=== PATIENT | male | born 1970 | race Caucasian/White ===

== ENCOUNTER 2019-02-04 07:51 | Day surgery (SDC) | payer OTHER, SELFPAY ==
--- NOTE | 2019-02-04 | PATH_ITS ---
[facility] Accession Number: [id number] . 01 Material submitted: . colon - COLON POLYP AT 55 CM . 01 Clinical history: . SCREENING COLONOSCOPY . 02 Diagnosis: Colon, Polyp At 55 CM, Biopsy: Benign lymphoid aggregate. Additional levels were examined. [facility] 02/06/2019 1624 Local . 02 Electronically signed: . Sylvia Vieira MD, Pathologist NPI- [id number] . 01 Gross description: . COLON POLYP AT 55 CM: Received in formalin are 2 fragment(s) of chan, soft tissue measuring 0.1 x 0.1 x 0.1 cm in aggregate submitted entirely in 1 cassette(s) /[facility] 02/04/2019 1933 Local . 02 Pathologist provided ICD-10: K63.5 . 02 CPT . 488282 Performed at: 01 [facility] [address] [place] [id number] MD Farhat Galvan MD Phone: [phone] Performed at: 02 [facility] [address] [place], [place] [id number] MD Sylvia Vieira MD Phone: [phone]
--- NOTE | 2019-02-04 06:49 | P.HP_ITS ---
History of Present Illness History of Present Illness Chief complaint: [id number] SCREENING COLONOSCOPY Patient History Medical History Carpal tunnel syndrome (Acute) Meds Home Medications and Allergies Home Medications Medication Instructions Recorded Confirmed Type OMEGA-3 FATTY ACIDS (FISH OIL) 500 mg PO #0 05/09/16 History aspirin 81 mg PO QDAY #0 05/09/16 History atorvastatin [Lipitor] 40 mg PO QDAY #0 05/09/16 History metformin [Glucophage XR] 500 mg PO QDAY #0 05/09/16 History hydrocodone-acetaminophen [[place]] 1 tab PO Q6HP PRN #10 tab 01/15/17 Rx pantoprazole [Protonix] 40 mg PO QDAY #30 tab 03/14/17 Rx lisinopril 40 mg PO QDAY #0 05/08/17 History metoprolol succinate [Toprol XL] 50 mg PO QDAY #0 05/08/17 History Allergies Allergy/AdvReac Type Severity Reaction Status Date / Time morphine [MORPHINE] Allergy Unknown VOMITING Verified 02/04/19 08:44 Review of Systems Review of Systems ROS Unobtainable: All systems reviewed & are unremarkable except as noted in HPI and below Exam Narrative Exam Narrative: General-no acute distress, well nourished HEENT-moist mucous membranes, no scleral icterus Neck-supple, no lymphadenopathy Chest- non labored respirations, clear to auscultation bilaterally Cardiac-regular rate no peripheral edema Abdomen-soft, nontender, non distended Extremities-warm, well perfused Neurological-alert and oriented, no focal deficits Assessment & Plan Assessment and plan (1) Screening for colon cancer: Problem details: The patient requires colorectal screening and colonoscopy is recommended. Technical details were discussed. Risks, benefits, alternatives explained. Risks including but not limited to myocardial infarction, aspiration, bleeding, pain, missed lesion, incomplete examination, need for further radiographic studies, colonic perforation, and need for major abdominal surgery were discussed. All questions were answered to their satisfaction, and they are in agreement with this plan. Current visit: Yes Status: Acute Assessment & Plan narrative: .
[2019-02-04] MEDS: SODIUM CHLORIDE 0.9% 1,000 ML 200 ML IV (08:54)
[2019-02-04 08:55] VITALS: BP 126/83; PULSE 87; RESP 24; TEMP 36.8; O2SAT 98; BMI 40.7
[2019-02-04] MEDS: fentaNYL 250 MCG/5 ML INJ IV (09:51)
[2019-02-04] MEDS: MIDAZOLAM 5 MG/5 ML VIAL IV (09:51)
--- NOTE | 2019-02-04 10:06 | PM.OP.ENDO ---
Operative Date/Time/Diagnoses Date of procedure: 02/04/19 Time of procedure: 10:06 Pre-op diagnosis: Screening colonoscopy Post-op diagnosis: same Procedure & Clinicians Study performed: Colonoscopy Same procedure as scheduled: Yes Indications: 48-year-old gentleman no previous colonoscopy presents for screening. Surgeon: Chintan Galarza Procedure Notes SCOAP/Timeout: Performed Procedure in detail: Patient placed in left lateral decubitus position. Time out was performed. Procedural sedation was administered with Versed and Fentanyl. A rectal exam demonstrated no external hemorrhoids no internal masses. Colonoscopy scope was placed into the rectum and advanced through the colon to the cecum. The ileocecal valve was identified. The scope was then slowly withdrawn examining colon thoroughly in all directions. The colonoscopy was notable for the following 1. DIVERTICULOSIS 2. FLAT POLYP <1 CM AT 55 CM FROM ANAL VERGE BIOPSIED, HEMOSTATIC AT COMPLETION 3. QUALITY OF PREP EXCELLENT Scope withdrawal time: 9 Sedation minutes: 20 Findings: diverticulosis and polyp Specimen(s): other (POLYP) Impression: POLYP Post-procedure Recommendations: Colonscopy in 5 years Disposition: same day surgery
[2019-02-04 10:10] VITALS: BP 142/99; PULSE 87; RESP 15; TEMP 36.2; O2SAT 97
[2019-02-04 10:15] VITALS: BP 142/81; PULSE 91; RESP 16; O2SAT 98
[2019-02-04 10:20] VITALS: BP 155/98; PULSE 98; RESP 13; O2SAT 100
[2019-02-04 10:25] VITALS: BP 116/76; PULSE 85; RESP 17; TEMP 36.8; O2SAT 100
[2019-02-04 10:30] VITALS: BP 127/78; PULSE 85; RESP 15; TEMP 36; O2SAT 100
== END 2019-02-04 10:41 | disposition home or self-care (01) ==
PROVIDERS: PCP Family Medicine; Visit Provider Surgery
PROC: 0DJD8ZZ Inspection of Lower Intestinal Tract, Via Natural or Artificial Opening Endoscopic (ICD-10-PCS; CPT 45378; principal; 2019-02-04 09:30)
DX: Z12.11 Encounter for screening for malignant neoplasm of colon (principal); K57.30 Diverticulosis of large intestine without perforation or abscess without bleeding; K63.5 Polyp of colon
CPT/HCPCS: 45380; 99152; J2250; J3010

== ENCOUNTER 2019-06-11 12:37 | Emergency (ER) | payer OTHER, SELFPAY ==
[2019-06-11] VITALS (9 sets, daily range): BP systolic 116–161; BP diastolic 62–91; PULSE 54–75; RESP 12–18; TEMP 36.7; O2SAT 96–99
--- NOTE | 2019-06-11 12:40 | DI.RAD.S_ITS ---
PROCEDURE: XR CHEST 1V INDICATIONS: chest pain TECHNIQUE: One view of the chest was acquired. COMPARISON: [facility], , CHEST 1 VIEW, 03/14/2017, 18:09. FINDINGS: Surgical changes and devices: None. Lungs and pleura: Lungs are clear. No pleural effusions or pneumothorax. Mediastinum: Mediastinal contours appear normal. Heart size is normal. Bones and chest wall: No suspicious bony lesions. Overlying soft tissues appear unremarkable. IMPRESSION: No acute disease Dictated by: Demar Ocampo M.D. on 06/11/2019 at 13:31 Approved by: Demar Ocampo M.D. on 06/11/2019 at 13:31
--- NOTE | 2019-06-11 12:55 | ED.CHESTPAIN ---
HPI - Chest Pain General Chief Complaint: Chest Pain Stated Complaint: Chest Pain Time Seen by Provider: 06/11/19 12:37 Source: EMS Mode of arrival: EMS History of Present Illness HPI narrative: 48-year-old gentleman with a history diabetes, hypertension, hyperlipidemia, obesity, prior cardiac catheterization with ?a small heart attack? but no stenting approximately 15 years ago. Presents to urgent care this morning complaining of chest pain intermittent for the last 3 days. Worse with activity resolves with rest. Somewhat worse with a cough and he has had mild upper respiratory symptoms in the last week. Over the last 3 days the intermittent episodes of exertional chest pain or beginning to cause as pain radiating up to the back of his head and then today while driving from [employer] to [employer] he noticed some numbness in his left hand and forearm associated with the left-sided chest pain. The initial episode was 3 days ago, started shortly after waking up, he describes it added as an 8/10 sharp, tight, associated with diaphoresis and dyspnea and was severe enough that he had trouble even bending over. Eventually resolved spontaneously. Recurrent episodes over the last couple of days are similar in nature. He does describe 2 distinct types of chest pain. One is a sharp stabbing pain when he is coughing and the other is with exertion that is associated with a deeper tight type of pain and diaphoresis and dyspnea. EN route from urgent care he was given aspirin as well as 2 nitroglycerin. He found that the nitroglycerin took his 8/10 pain down to a 6/10. He is quite comfortable during the exam, but describes pain increasing again to an 8/10 without diaphoresis or objective dyspnea. Related Data Home Medications Medication Instructions Recorded Confirmed OMEGA-3 FATTY ACIDS (FISH OIL) 500 mg PO DAILY #0 05/09/16 06/11/19 aspirin 81 mg PO QPM #0 05/09/16 06/11/19 atorvastatin [Lipitor] 40 mg PO QPM #0 05/09/16 06/11/19 metformin [Glucophage XR] 1,000 mg PO BID #0 05/09/16 06/11/19 metoprolol succinate [Toprol XL] 50 mg PO QPM #0 05/08/17 06/11/19 losartan 50 mg PO QPM 06/11/19 06/11/19 Allergies Allergy/AdvReac Type Severity Reaction Status Date / Time morphine [MORPHINE] AdvReac Severe VOMITING Verified 06/11/19 12:47 Review of Systems Review of Systems Narrative: Minor cough runny nose and sore throat over the last 5 days improving now. Remainder of review as per HPI and otherwise unremarkable Patient History Medical History (Updated 06/11/19 @ 16:11 by Rocio Vieyra MD) Carpal tunnel syndrome (Acute) Diabetes (Acute) HTN (hypertension) (Acute) Morbid obesity (Acute) JESSICA (obstructive sleep apnea) (Acute) Social History household members: family Smoking Status: Never smoker Smoking Status: Never smoker alcohol intake frequency: 0-2 drinks per day Substance Use Type: does not use Exam Narrative Exam Narrative: General: Healthy appearing, in no acute distress. Able to give a complete and coherent history. Well-nourished well-developed HEENT: Moist mucous membranes, normal sclera with reactive pupils, Neck: No JVD, supple Chest: With a pre compression of his chest he does have some costochondral tenderness that he describes as separate from the left chest pain tightness that is relieved with nitro and the pain for which she is currently being evaluated Respiratory: Lungs are clear to auscultation, no wheezing no rales no rhonchi. Full and symmetrical air movement Cardiac: Regular rate and rhythm no murmurs no bruits Abdomen: Soft nontender good bowel tones, no flank pain Skin: Warm and dry, no rashes Neurologic: Grossly neurologically intact with no obvious asymmetries or abnormalities Extremities: No trauma, well perfused, no edema Psych: Cooperative, appropriate insight and affect Initial Vital Signs Initial Vital Signs: Vital Signs Temperature 98.1 F 06/11/19 12:40 Pulse Rate 75 06/11/19 12:40 Respiratory Rate 16 06/11/19 12:40 Blood Pressure 151/86 H 06/11/19 12:40 Pulse Oximetry 99 06/11/19 12:40 Course Orders Ordered: ED Orders 06/11/19 12:35 Complete Blood Count AUTO DIFF Stat Comprehensive Metabolic Panel Stat Lipase Stat Troponin & CK Cardiac Panel Stat 06/11/19 12:40 XR chest 1V Stat EKG-12 Lead Stat 06/11/19 14:35 Troponin & CK Cardiac Panel Stat 06/11/19 16:01 EKG-12 Lead Stat 06/11/19 16:08 EC echo limited Stat Discontinued Medications Aspirin (Aspirin Chew) 324 mg PO NOW ONE Stop: 06/11/19 12:41 Last Admin: 06/11/19 12:49 Dose: Not Given Documented by: KINA Al Hydrox/Mg Hydrox/Simethicone 20 ml/ Lidocaine HCl 15 ml 0 ml PO NOW ONE Stop: 06/11/19 16:22 Last Admin: 06/11/19 16:27 Dose: 35 ml Documented by: KINA Heparin Sodium (Porcine) (Heparin) 5,000 unit IV NOW ONE Stop: 06/11/19 12:58 Last Admin: 06/11/19 13:14 Dose: 5,000 unit Documented by: KINA Sodium Chloride (Normal Saline 0.9%) 1,000 mls @ 150 mls/hr IV CONT [facility] Last Infusion: 06/11/19 17:50 Dose: 0 mls/hr Documented by: Admin: 06/11/19 13:01 Dose: 150 mls/hr Documented by: KINA Heparin Sodium/Dextrose (Heparin Drip) 25,000 unit in 500 mls @ 20 mls/hr IV CONT [facility]; Protocol Last Titration: 06/11/19 17:50 Dose: 0 units/hr, 0 mls/hr Documented by: Admin: 06/11/19 13:14 Dose: 1,000 units/hr, 20 mls/hr Documented by: KINA Ketorolac Tromethamine (Toradol) 15 mg IV NOW ONE Stop: 06/11/19 13:26 Last Admin: 06/11/19 13:42 Dose: 15 mg Documented by: KINA Metoprolol Tartrate (Lopressor) 5 mg IV Q5M FAM Stop: 06/11/19 13:26 Last Admin: 06/11/19 15:44 Dose: Not Given Documented by: Admin: 06/11/19 15:44 Dose: Not Given Documented by: Admin: 06/11/19 15:44 Dose: Not Given Documented by: KINA Morphine Sulfate (Morphine) 2 mg IV Q15MIN [facility] Last Admin: 06/11/19 14:16 Dose: 2 mg Documented by: SVETA Nitroglycerin (Nitrostat) 0.4 mg SL [id number] PRN PRN Reason: Chest Pain Last Admin: 06/11/19 13:00 Dose: 0.4 mg Documented by: KINA Nitroglycerin (Nitro-Bid) 0.5 inch TOP NOW ONE Stop: 06/11/19 12:41 Last Admin: 06/11/19 13:15 Dose: 0.5 inch Documented by: KINA Ondansetron HCl (Zofran) 4 mg IV NOW ONE Stop: 06/11/19 14:11 Last Admin: 06/11/19 14:17 Dose: 4 mg Documented by: SVEAT Pantoprazole Sodium (Protonix) 40 mg IV NOW ONE Stop: 06/11/19 17:05 Last Admin: 06/11/19 17:08 Dose: 40 mg Documented by: KINA Vital Signs Vital signs: Vital Signs - 8 hr 06/11/19 12:40 06/11/19 13:00 06/11/19 13:15 Temperature 98.1 F Pulse Rate 75 74 74 Respiratory Rate 16 14 Blood Pressure 151/86 H 161/91 H 129/71 Blood Pressure [Right Arm] 161/91 H Pulse Oximetry 99 99 06/11/19 13:21 06/11/19 14:00 06/11/19 14:56 Temperature Pulse Rate 69 60 56 L Respiratory Rate 12 18 18 Blood Pressure Blood Pressure [Right Arm] 126/73 116/68 135/62 Pulse Oximetry 99 99 99 06/11/19 15:43 06/11/19 16:22 06/11/19 17:02 Temperature Pulse Rate 54 L 59 L 56 L Respiratory Rate 17 15 18 Blood Pressure Blood Pressure [Right Arm] 135/62 135/62 135/62 Pulse Oximetry 99 99 96 MDM - Chest Pain Medical Records Data Attestation: I reviewed the patient's medical records. Lab Data Attestation: I reviewed the patient's lab results. Lab results narrative: Initial troponin and repeat troponin are both unremarkable Result diagrams: 06/11/19 12:35 06/11/19 12:35 Labs: Lab Results 06/11/19 06/11/19 06/11/19 Range/Units 12:35 12:35 14:35 WBC 7.0 (4.5-11.0) X10^3/uL RBC 6.10 H (4.5-5.9) X10^6/uL Hgb 13.0 L (13.5-17.5) g/dL Hct 40.9 L (41-53) % MCV 67.0 L (80-100) fL MCH 21.2 L (26-34) PG MCHC 31.7 (30-36) % RDW 16.6 H (11.6-14.8) % Plt Count 247 (150-400) X10^3/uL Neut % (Auto) 56.9 (50-75) % Lymph % (Auto) 24.2 L (25-40) % [place] % (Auto) 9.9 (3-14) % Eos % (Auto) 8.1 H (2-4) % Baso % (Auto) 0.9 (0-2) % Neut # (Auto) 4000 (3963-2611) /uL Lymph # (Auto) 1700 (7908-4781) /uL [place] # (Auto) 700 (0-900) /uL Eos # (Auto) 600 H (0-450) /uL Baso # (Auto) 100 (0-100) /uL RBC Morphology See below Hypochromasia 1+ H Anisocytosis 1+ H Microcytosis 1+ H Sodium 141 (137-145) mmol/L Potassium 4.3 (3.4-5.1) mmol/L Chloride 106 (98-107) mmol/L Carbon Dioxide 25 (22-32) mmol/L BUN 14 (9-20) mg/dL Creatinine 0.60 L (0.66-1.25) mg/dL Estimated GFR > 60.0 (>60) mL/min BUN/Creatinine Ratio 23.3 H (6-22) Glucose 130 H (70-100) mg/dL Calcium 9.8 (8.4-10.2) mg/dL Total Bilirubin 0.5 (0.2-1.3) mg/dL AST 34 (17-59) IU/L ALT 42 (<50) IU/L Alkaline Phosphatase 111 (38-126) U/L Total Creatine Kinase 206 H 187 H (55-170) U/L CK-MB (CK-2) 0.82 0.79 (<2.37) ng/mL CK-MB (CK-2) Rel Index 0.4 L 0.4 L (1.5-5.0) % Troponin I < 0.012 < 0.012 (0.01-0.034) ng/mL Total Protein 8.3 H (6.3-8.2) g/dL Albumin 4.6 (3.5-5.0) g/dL Globulin 3.7 (1.7-4.1) g/dL Albumin/Globulin Ratio 1.2 (1.0-2.8) Lipase 108 (23-300) U/L Imaging Data Chest x-ray: Radiologist's Impression: IMPRESSION: No acute disease Dictated by: Demar Ocampo M.D. on 06/11/2019 at 13:31 ECG Data Attestation: I personally reviewed and interpreted this ECG as follows: Interpretation: Initial EKG has a ventricular rate of 72 beats per minute Normal axis, normal intervals no acute ischemia EKG #2 At 4:07 p.m. Indication: Ongoing chest pain Normal sinus rhythm at a rate of 54 Normal axis, normal intervals no ischemic changes. No changes from initial EKG MDM Narrative Medical decision making narrative: HEART score is 5 even before troponins are returned and with normal EKGs. His history is strongly suspicious for both the pleuritic type pain related to his upper respiratory infection and left-sided chest pain consistent with unstable angina increasing from exertional pain to pain at rest with left arm numbness this morning. He is initially treated with aspirin nitro and started on a heparin drip based on his history. Initial lab work is done. Blood pressure remains elevated with a heart rate at 70 to go ahead and administer IV metoprolol as heart rate and blood pressure tolerate. Will need hospital admission based on history and presentation with initial troponin helping guide the need for emergent verses routine cardiology intervention Initial troponin is unremarkable. Pain has not been influenced further with nitro or nitropaste. Still objectively looking quite comfortable but complaining of significant chest pain. Nitro has brought his blood pressure down heart rate is in the mid 60s will hold on any metoprolol at this point. He describes vomiting after morphine. Try Toradol at this point and see if that influences his pain more than the nitro 14:18 reality. Still complaining of significant chest pain. Toradol did not influenza either. Remains with half an inch of nitro paste and heparin drip in place. He states that the pain is worse with a deep breath currently. He continues to go on to explain over the last 3 days it has absolutely been exertional with diaphoresis requiring less exertion and his previous cardiac event at the age of 35 had similar findings with associated left-sided numbness. With his multiple risk factors as well as the clear description of exertional, associated diaphoresis and now with the left arm numbness I am still significantly concerned about true cardiac etiology rather than an alternate either musculoskeletal or pleuritic component as a complete explanation for his current pain Call to [facility], they do have beds available. Will talk to hospitalist once available. Initial labs were at 12:30 p.m. will repeat a 2nd set of enzymes now. Explained plan and findings with patient. Will try Zofran followed by 2 mg of morphine to see if this helps his pain as the Toradol and nitro currently have not [address] Harper, [facility] hospitalist. Review findings including minimal change to pain with morphine. She recommended adding a nitro drip. Accepted admission. Also asked that I review care with Dr. 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. 1610: Dr. Santillan recommends stat echo to look for wall abnormalities. In the absence of cardiac wall abnormalities, negative troponin and negative EKGs he feels the likelihood of a cardiac etiology for this ongoing chest pain is small. Encourage is continuing to search for other etiologies. Does not feel that he increasing nitro to a drip is necessary at this time. Will go ahead and try a GI cocktail to see if that has any effect on his pain and will let Dr. Harper no of the recommendations and plan for transfer to [facility] 17:05 GI cocktail has influenced his pain somewhat. Will give him 40 mg of IV Protonix. Bed is available at [facility]. Transport is being arranged currently. Discharge Plan Departure Patient Disposition: [facility] Clinical Impression: Chest pain Discharge Date/Time: 06/11/19 17:51 Prescriptions: No Action atorvastatin [Lipitor] 40 MG tablet 40 mg PO QPM Qty: 0 RF: 0 aspirin 81 MG tablet,delayed release (DR/EC) 81 mg PO QPM Qty: 0 RF: 0 metformin [Glucophage XR] 500 MG tablet extended release 24 hr 1,000 mg PO BID Qty: 0 RF: 0 OMEGA-3 FATTY ACIDS (FISH OIL) 500 mg PO DAILY Qty: 0 RF: 0 metoprolol succinate [Toprol XL] 50 MG tablet extended release 24 hr 50 mg PO QPM Qty: 0 RF: 0 losartan 50 mg Tablet 50 mg PO QPM RF: 0 Referrals: Chaz Monique MD [Primary Care Provider] -
[2019-06-11 12:58] LABS: Alanine Aminotransferase 42 IU/L (<50); Albumin 4.6 g/dL (3.5-5.0); Albumin Globulin Ratio 1.2 (1.0-2.8); Alkaline Phosphatase 111 U/L (38-126); Aspartate Aminotransferase 34 IU/L (17-59); BUN Creatinine Ratio 23.3 (6-22); Bilirubin Total 0.5 mg/dL (0.2-1.3); Blood Urea Nitrogen 14 mg/dL (9-20); Calcium 9.8 mg/dL (8.4-10.2); Carbon Dioxide 25 mmol/L (22-32); Chloride 106 mmol/L (98-107); Creatine Kinase 206 U/L (55-170); Estimated Glomerular Filt Rate > 60.0 mL/min (>60); Globulin 3.7 g/dL (1.7-4.1); Glucose 130 mg/dL (70-100); HEMOLYSIS < 15 (0-50); Lipase 108 U/L (23-300); Potassium 4.3 mmol/L (3.4-5.1); Sodium 141 mmol/L (137-145); Total Protein 8.3 g/dL (6.3-8.2)
[2019-06-11] MEDS: NITROGLYCERIN 0.4 MG SL TAB SL (13:00)
[2019-06-11 13:01] LABS: Add Manual Diff / Slide Review NO; Basophils Absolute Auto 100 /uL (0-100); Basophils Percent Auto 0.9 % (0-2); Eosinophils Absolute Auto 600 /uL (0-450); Eosinophils Percent Auto 8.1 % (2-4); Hematocrit 40.9 % (41-53); Lymphocytes Absolute Auto 1700 /uL (1100-4500); Lymphocytes Percent Auto 24.2 % (25-40); Mean Corpuscular HGB Conc 31.7 % (30-36); Mean Corpuscular Hemoglobin 21.2 PG (26-34); Monocytes Absolute Auto 700 /uL (0-900); Monocytes Percent Auto 9.9 % (3-14); Neutrophils Absolute Auto 4000 /uL (1500-7000); Neutrophils Percent Auto 56.9 % (50-75); Platelet Count 247 X10^3/uL (150-400); Red Cell Distribution Width 16.6 % (11.6-14.8)
[2019-06-11] MEDS: SODIUM CHLORIDE 0.9% 1,000 ML 150 ML IV (13:01)
[2019-06-11 13:10] LABS: Troponin I < 0.012 ng/mL (0.01-0.034)
[2019-06-11 13:14] LABS: CKMB % Relative Index 0.4 % (1.5-5.0); Creatine Kinase MB 0.82 ng/mL (<2.37)
[2019-06-11] MEDS: HEPARIN 5,000 UNIT/ML VIAL 5000 UNIT IV (13:14)
[2019-06-11] MEDS: HEPARIN DRIP 25,000 UNIT/500 ML IV.SOLN 20 UNIT IV (13:14)
[2019-06-11] MEDS: NITROGLYCERIN OINT 1 INCH/GM OINT...G. 0.5 INCH TOP (13:15)
[2019-06-11 13:30] LABS: Anisocytosis 1+; Hypochromasia 1+; Microcytosis 1+
[2019-06-11] MEDS: KETOROLAC 60 MG/2 ML VIAL 15 MG IV (13:42)
[2019-06-11] MEDS: MORPHINE 2 MG/ML INJ IV (14:16)
[2019-06-11] MEDS: ONDANSETRON 4 MG/2 ML INJ IV (14:17)
[2019-06-11 15:00] LABS: Creatine Kinase 187 U/L (55-170)
[2019-06-11 15:13] LABS: Troponin I < 0.012 ng/mL (0.01-0.034)
[2019-06-11 15:16] LABS: CKMB % Relative Index 0.4 % (1.5-5.0); Creatine Kinase MB 0.79 ng/mL (<2.37)
[2019-06-11] MEDS: MAG HYDROX/ALUMINUM/SIMETH SUS 20 ML, LIDOCAINE VISCOUS 2% 15 ML PO (16:27)
--- NOTE | 2019-06-11 16:32 | PC.NURSE ---
Pt continues to c/o pain left upper abd / left lower anterior chest. Worse w/ cough. Easy work of breathing. Denies nausea / vomiting/ diaphorisis. [place]/warm/dry. c/o pain 11/17. Texting on phone, sleeping on and off. Denies needs at this time. Attempting GI cocktail for pain.
[2019-06-11] MEDS: PANTOPRAZOLE 40 MG VIAL IV (17:08)
--- NOTE | 2019-06-11 17:50 | PC.NURSE ---
Report to KERA Benjamin RN @ bedside. IV NS / Heparin discontinued for purposes of [facility] charting. Please see [facility] charting for continuation of medications.
== END 2019-06-11 17:51 | disposition short-term general hospital (02) ==
PROVIDERS: Emergency Provider Emergency Medicine; PCP Family Medicine
DX: R07.9 Chest pain, unspecified (principal); E11.9 Type 2 diabetes mellitus without complications; I10 Essential (primary) hypertension; E78.5 Hyperlipidemia, unspecified; E66.9 Obesity, unspecified
CPT/HCPCS: 36415; 71045; 80053; 82550; 82553; 83690; 84484; 85025; 93005; 93010; 96365; 96366; 96375; 99285; C9113; J1644; J1885; J2270; J2405

== ENCOUNTER 2019-07-14 15:14 | Observation (INO) | payer OTHER, SELFPAY ==
[2019-07-14] VITALS (9 sets, daily range): BP systolic 109–153; BP diastolic 65–81; PULSE 65–85; RESP 16–23; TEMP 36.2–36.8; O2SAT 94–98; BMI 39.6
--- NOTE | 2019-07-14 15:18 | DI.RAD.S_ITS ---
PROCEDURE: XR CHEST 1V INDICATIONS: chest pain. TECHNIQUE: One view of the chest was acquired. COMPARISON: [facility], CR, XR CHEST 1V, 06/11/2019, 12:45. FINDINGS: Surgical changes and devices: None. Lungs and pleura: The aeration of the lungs is similar to the prior study. Right hilar prominence is identified. No areas of significant pulmonary consolidation are appreciated. There is no effusion, or pneumothorax. Mediastinum: Mediastinal contours appear normal. Heart size is normal. Bones and chest wall: No suspicious bony lesions. Overlying soft tissues appear unremarkable. IMPRESSION: Stable chest. No acute cardiopulmonary processes suspected. Dictated by: Tres Rivera M.D. on 07/14/2019 at 14:51 Approved by: Tres Rivera M.D. on 07/14/2019 at 14:52
[2019-07-14 15:39] LABS: Add Manual Diff / Slide Review NO; Basophils Absolute Auto 0 /uL (0-100); Basophils Percent Auto 0.5 % (0-2); Eosinophils Absolute Auto 400 /uL (0-450); Eosinophils Percent Auto 4.8 % (2-4); Hematocrit 40.3 % (41-53); Hemoglobin 12.6 g/dL (13.5-17.5); Lymphocytes Absolute Auto 2100 /uL (1100-4500); Lymphocytes Percent Auto 26.1 % (25-40); Mean Corpuscular HGB Conc 31.4 % (30-36); Mean Corpuscular Hemoglobin 21.1 PG (26-34); Mean Corpuscular Volume 67.3 fL (80-100); Monocytes Absolute Auto 600 /uL (0-900); Monocytes Percent Auto 7.1 % (3-14); Neutrophils Absolute Auto 5000 /uL (1500-7000); Neutrophils Percent Auto 61.5 % (50-75); Platelet Count 241 X10^3/uL (150-400); Red Blood Cell Count 5.98 X10^6/uL (4.5-5.9); Red Cell Distribution Width 16.9 % (11.6-14.8); White Blood Cell Count 8.1 X10^3/uL (4.5-11.0)
[2019-07-14] MEDS: NITROGLYCERIN 0.4 MG SL TAB SL (15:40)
--- NOTE | 2019-07-14 15:41 | ED_ITS ---
HPI - Chest Pain <LAYLA Willis - Last Filed: 07/14/19 20:40> General Chief Complaint: Chest Pain Stated Complaint: CP, dizziness, left hand numb Time Seen by Provider: 07/14/19 15:26 Source: patient Mode of arrival: Ambulatory Limitations: no limitations History of Present Illness HPI narrative: The patient is a 49-year-old male nonsmoker diabetes, hypertension, obesity and prior cardiac catheterization related to ?a small heart attack' when he was in his 30s. States that he has had residual left- sided chest pain since his visit last month and then it got much worse today to 10/10 pain. He also complains of some numbness in left hand, associated dizziness, no nausea vomiting abdominal pain, or palpitations. He does complain of shortness of breath. He states this has been going on since last month. He has not taken anything at home for pain. He describes his dizziness as wooziness and spinning sensation. He has not taking anything at home to feel better. He states that the pain and is in his left pectoral. He has not taken any nitroglycerin or taken anything at home to feel better. The patient states that his chest pain is worse with a deep breath, coughing or lying on his left side. Related Data Home Medications Medication Instructions Recorded Confirmed OMEGA-3 FATTY ACIDS (FISH OIL) 500 mg PO DAILY #0 05/09/16 07/14/19 aspirin 81 mg PO QPM #0 05/09/16 07/14/19 atorvastatin [Lipitor] 40 mg PO QPM #0 05/09/16 07/14/19 metformin [Glucophage XR] 1,000 mg PO BID #0 05/09/16 07/14/19 metoprolol succinate [Toprol XL] 50 mg PO QPM #0 05/08/17 07/14/19 losartan 50 mg PO QPM 06/11/19 07/14/19 Allergies Allergy/AdvReac Type Severity Reaction Status Date / Time morphine [MORPHINE] AdvReac Severe VOMITING Verified 06/11/19 12:47 Review of Systems <LAYLA Willis - Last Filed: 07/14/19 20:40> Review of Systems Narrative: GENERAL: Denies chills, fatigue, malaise, fever, sweats. HEENT: Denies sinus pain, ear pain, sore throat, difficulty swallowing, dizziness. RESPIRATORY: See HPI CARDIOVASCULAR: See HPI GASTROINTESTINAL: Denies nausea, vomiting, abdominal pain, diarrhea, constipation, melena. : Denies dysuria, frequency, incontinence, hematuria, urinary retention. MUSCULOSKELETAL: denies weakness, joint pain, or bony pain SKIN: Denies rash, skin lesions, or other NEUROLOGIC: see HPI PSYCHIATRIC: No concerning psychosocial issues. 12 point review of systems is negative except for those stated above Patient History <LAYLA Willis - Last Filed: 07/14/19 20:40> Medical History Carpal tunnel syndrome (Acute) Diabetes (Acute) HTN (hypertension) (Acute) Morbid obesity (Acute) JESSICA (obstructive sleep apnea) (Acute) Social History household members: family Smoking Status: Never smoker alcohol intake: never Smoking Status: Never smoker alcohol intake frequency: 0-2 drinks per day Substance Use Type: does not use Exam <LAYLA Willis - Last Filed: 07/14/19 20:40> Narrative Exam Narrative: GENERAL: Obese male, well nourished and well developed. HEAD: Atraumatic. Normocephalic. No temporal or scalp tenderness. EYES: Pupils equal round and reactive. Extraocular motions intact. No scleral icterus. No injection or drainage. ENT: Nose without bleeding, purulent drainage or septal hematoma. Throat without erythema, tonsillar hypertrophy or exudate. Uvula midline. Airway patent. NECK: Trachea midline. No JVD or lymphadenopathy. Supple, nontender, no meningeal signs. CARDIOVASCULAR: Regular rate and rhythm RESPIRATORY: Clear to auscultation. Breath sounds equal bilaterally. No wheezes, rales, or rhonchi. No cough. No increased respiratory effort. Speaking full sentences. Pain to palpation left lower chest wall. Pain to lateral chest wall compression. GASTROINTESTINAL: Abdomen soft, non-tender, nondistended. No hepato-splenomega ly, or palpable masses. No guarding. EXTREMITIES: No clubbing, cyanosis, or edema. No joint tenderness, effusion, or edema noted. BACK: Nontender without deformity or crepitance. No flank tenderness. NEURO: AOx3. SKIN: No rash or erythema. Initial Vital Signs Initial Vital Signs: Vital Signs Temperature 98.2 F 07/14/19 15:20 Pulse Rate 80 07/14/19 15:20 Respiratory Rate 17 07/14/19 15:20 Blood Pressure 153/81 H 07/14/19 15:20 Pulse Oximetry 98 07/14/19 15:20 <Robert Tejeda DO - Last Filed: 07/15/19 01:12> Initial Vital Signs Initial Vital Signs: Vital Signs Temperature 98.2 F 07/14/19 15:20 Pulse Rate 80 07/14/19 15:20 Respiratory Rate 17 07/14/19 15:20 Blood Pressure 153/81 H 07/14/19 15:20 Pulse Oximetry 98 07/14/19 15:20 Course <JOSE Willis-BC - Last Filed: 07/14/19 20:40> Orders Ordered: ED Orders 07/14/19 18:21 CT chest w con Stat Troponin & CK Cardiac Panel Stat 07/14/19 20:11 CT abdomen pelvis wo con Stat Aspirin (Aspirin Ec) 81 mg PO DAILY FAM Aspirin (Aspirin Ec) 81 mg PO QPM FAM Atorvastatin Calcium (Lipitor) 40 mg PO QPM [facility] Dextrose (D50w) 25 gm IV PRN PRN PRN Reason: Hypoglycemia Enoxaparin Sodium (Lovenox) 40 mg SUBCUT DAILY [facility] Fentanyl (Sublimaze) 50 mcg IV Q3H PRN PRN Reason: Pain, Severe (7-10) Insulin Aspart (Novolog Flexpen) 0 unit SUBCUT ACHS FAM; Protocol Losartan Potassium (Cozaar) 50 mg PO QPM FAM Metoprolol Succinate (Toprol Xl) 50 mg PO QPM [facility] Naloxone HCl (Narcan) 0.2 mg IV Q2MIN PRN PRN Reason: Opiate Reversal Nitroglycerin (Nitrostat) 0.4 mg SL [id number] PRN PRN Reason: Chest Pain Last Admin: 07/14/19 15:40 Dose: 0.4 mg Documented by: MMCFARL Nitroglycerin (Nitrostat) 0.4 mg SL [id number] PRN PRN Reason: Chest Pain Ondansetron HCl (Zofran Odt) 4 mg PO Q6HR [facility] Last Admin: 07/15/19 00:56 Dose: Not Given Documented by: CHAPINCITO Discontinued Medications Aspirin (Aspirin Chew) 324 mg PO NOW ONE Stop: 07/14/19 19:47 Last Admin: 07/14/19 19:58 Dose: 324 mg Documented by: SHANE Cyclobenzaprine HCl (Flexeril) 10 mg PO NOW ONE Stop: 07/14/19 16:55 Last Admin: 07/14/19 17:12 Dose: 10 mg Documented by: SHANE Fentanyl (Sublimaze) 50 mcg IV NOW ONE Stop: 07/14/19 16:41 Last Admin: 07/14/19 16:55 Dose: 50 mcg Documented by: SHANE Ketorolac Tromethamine (Toradol) 30 mg IV NOW ONE Stop: 07/14/19 15:53 Last Admin: 07/14/19 16:02 Dose: 30 mg Documented by: SHANE Lidocaine (Lidoderm) 1 each TOP NOW ONE Stop: 07/14/19 16:55 Last Admin: 07/14/19 17:12 Dose: 1 each Documented by: SHANE Methylprednisolone (Solu-Medrol 125 Mg Vial) 125 mg IV NOW ONE Stop: 07/14/19 19:47 Last Admin: 07/14/19 19:58 Dose: 125 mg Documented by: SHANE Ondansetron HCl (Zofran) 4 mg IV NOW ONE Stop: 07/14/19 17:43 Last Admin: 07/14/19 17:48 Dose: 4 mg Documented by: SHANE Reevaluation(s) Reevaluation #1: Patient records from [facility] reviewed. He was admitted for 1 night of observation [id number]. The patient had an echocardiogram with no acute findings, treadmill stress test with no acute findings of brain MR with no acute findings at that point time. He was diagnosed with muscle spasm upon discharge. I checked on the patient he feels slightly better after the above-stated therapies. However he continues to have left-sided pain worse with pressure and deep breathing. He states he feels slightly nauseous, so Zofran was ordered. Time: 17:43 Reevaluation #2: 2nd trop being drawn. discussed getting chest ct. patient is in accordance. Time: 18:29 Consultations Consultation #1: I spoke with Dr. Modi from [facility] cardiology regarding the patient, lab results, he evaluated but was done at [facility] during the last visit. He recommends that the patient be admitted for for a nuclear med stress test. He recommends that the patient stay at this facility. He also suggest trying Solu-Medrol to try for pleuritic pain Time: 19:51 Vital Signs Vital signs: Vital Signs - 8 hr 07/14/19 17:15 07/14/19 18:00 07/14/19 19:00 Pulse Rate 76 65 79 Respiratory Rate 18 23 19 Blood Pressure [Left Arm] 145/75 H 119/70 109/75 Pulse Oximetry 96 94 98 07/14/19 19:56 Pulse Rate 85 Respiratory Rate 22 Blood Pressure [Left Arm] 120/65 Pulse Oximetry 96 <Robert Tejeda DO - Last Filed: 07/15/19 01:12> Orders Ordered: ED Orders 07/14/19 18:21 CT chest w con Stat Troponin & CK Cardiac Panel Stat 07/14/19 20:11 CT abdomen pelvis wo con Stat Aspirin (Aspirin Ec) 81 mg PO DAILY FAM Aspirin (Aspirin Ec) 81 mg PO QPM FAM Atorvastatin Calcium (Lipitor) 40 mg PO QPM [facility] Dextrose (D50w) 25 gm IV PRN PRN PRN Reason: Hypoglycemia Enoxaparin Sodium (Lovenox) 40 mg SUBCUT DAILY FAM Fentanyl (Sublimaze) 50 mcg IV Q3H PRN PRN Reason: Pain, Severe (7-10) Insulin Aspart (Novolog Flexpen) 0 unit SUBCUT ACHS FAM; Protocol Losartan Potassium (Cozaar) 50 mg PO QPM FAM Metoprolol Succinate (Toprol Xl) 50 mg PO QPM FAM Naloxone HCl (Narcan) 0.2 mg IV Q2MIN PRN PRN Reason: Opiate Reversal Nitroglycerin (Nitrostat) 0.4 mg SL [id number] PRN PRN Reason: Chest Pain Last Admin: 07/14/19 15:40 Dose: 0.4 mg Documented by: MMCFARL Nitroglycerin (Nitrostat) 0.4 mg SL [id number] PRN PRN Reason: Chest Pain Ondansetron HCl (Zofran Odt) 4 mg PO Q6HR FAM Last Admin: 07/15/19 00:56 Dose: Not Given Documented by: CHAPINCITO Discontinued Medications Aspirin (Aspirin Chew) 324 mg PO NOW ONE Stop: 07/14/19 19:47 Last Admin: 07/14/19 19:58 Dose: 324 mg Documented by: SHANE Cyclobenzaprine HCl (Flexeril) 10 mg PO NOW ONE Stop: 07/14/19 16:55 Last Admin: 07/14/19 17:12 Dose: 10 mg Documented by: SHANE Fentanyl (Sublimaze) 50 mcg IV NOW ONE Stop: 07/14/19 16:41 Last Admin: 07/14/19 16:55 Dose: 50 mcg Documented by: SHANE Ketorolac Tromethamine (Toradol) 30 mg IV NOW ONE Stop: 07/14/19 15:53 Last Admin: 07/14/19 16:02 Dose: 30 mg Documented by: SHANE Lidocaine (Lidoderm) 1 each TOP NOW ONE Stop: 07/14/19 16:55 Last Admin: 07/14/19 17:12 Dose: 1 each Documented by: SHANE Methylprednisolone (Solu-Medrol 125 Mg Vial) 125 mg IV NOW ONE Stop: 07/14/19 19:47 Last Admin: 07/14/19 19:58 Dose: 125 mg Documented by: SHANE Ondansetron HCl (Zofran) 4 mg IV NOW ONE Stop: 07/14/19 17:43 Last Admin: 07/14/19 17:48 Dose: 4 mg Documented by: SHANE Vital Signs Vital signs: Vital Signs - 8 hr 07/14/19 17:15 07/14/19 18:00 07/14/19 19:00 Pulse Rate 76 65 79 Respiratory Rate 18 23 19 Blood Pressure [Left Arm] 145/75 H 119/70 109/75 Pulse Oximetry 96 94 98 07/14/19 19:56 Pulse Rate 85 Respiratory Rate 22 Blood Pressure [Left Arm] 120/65 Pulse Oximetry 96 MDM - Chest Pain <LAYLA Willis - Last Filed: 07/14/19 20:40> Lab Data Result diagrams: 07/14/19 15:30 07/14/19 15:30 Labs: Lab Results 07/14/19 07/14/19 07/14/19 Range/Units 15:30 15:30 15:30 WBC 8.1 (4.5-11.0) X10^3/uL RBC 5.98 H (4.5-5.9) X10^6/uL Hgb 12.6 L (13.5-17.5) g/dL Hct 40.3 L (41-53) % MCV 67.3 L (80-100) fL MCH 21.1 L (26-34) PG MCHC 31.4 (30-36) % RDW 16.9 H (11.6-14.8) % Plt Count 241 (150-400) X10^3/uL Neut % (Auto) 61.5 (50-75) % Lymph % (Auto) 26.1 (25-40) % Finney % (Auto) 7.1 (3-14) % Eos % (Auto) 4.8 H (2-4) % Baso % (Auto) 0.5 (0-2) % Neut # (Auto) 5000 (2916-4982) /uL Lymph # (Auto) 2100 (8287-3678) /uL Finney # (Auto) 600 (0-900) /uL Eos # (Auto) 400 (0-450) /uL Baso # (Auto) 0 (0-100) /uL RBC Morphology See below Poikilocytosis 2+ H Anisocytosis 1+ H Microcytosis 1+ H Ovalocytes 1+ H PT 12.2 (10.1-12.7) SECONDS INR 1.1 (0.9-1.3) APTT 36 (26.4-36.2) SECONDS D-Dimer (<230) ng/mL Sodium 139 (137-145) mmol/L Potassium 4.0 (3.4-5.1) mmol/L Chloride 103 (98-107) mmol/L Carbon Dioxide 28 (22-32) mmol/L BUN 16 (9-20) mg/dL Creatinine 0.72 (0.66-1.25) mg/dL Estimated GFR > 60.0 (>60) mL/min BUN/Creatinine Ratio 22.2 H (6-22) Glucose 124 H (70-100) mg/dL Calcium 9.7 (8.4-10.2) mg/dL Total Bilirubin 0.4 (0.2-1.3) mg/dL AST 34 (17-59) IU/L ALT 49 (<50) IU/L Alkaline Phosphatase 104 (38-126) U/L Total Creatine Kinase 135 (55-170) U/L CK-MB (CK-2) 0.74 (<2.37) ng/mL CK-MB (CK-2) Rel Index 0.5 L (1.5-5.0) % Troponin I < 0.012 (0.01-0.034) ng/mL NT-Pro-B Natriuret Pep (<125) pg/mL Total Protein 8.4 H (6.3-8.2) g/dL Albumin 4.5 (3.5-5.0) g/dL Globulin 3.9 (1.7-4.1) g/dL Albumin/Globulin Ratio 1.2 (1.0-2.8) Amylase (30-110) U/L Lipase 84 (23-300) U/L 07/14/19 07/14/19 07/14/19 Range/Units 15:30 15:30 15:30 WBC (4.5-11.0) X10^3/uL RBC (4.5-5.9) X10^6/uL Hgb (13.5-17.5) g/dL Hct (41-53) % MCV (80-100) fL MCH (26-34) PG MCHC (30-36) % RDW (11.6-14.8) % Plt Count (150-400) X10^3/uL Neut % (Auto) (50-75) % Lymph % (Auto) (25-40) % Finney % (Auto) (3-14) % Eos % (Auto) (2-4) % Baso % (Auto) (0-2) % Neut # (Auto) (6324-2424) /uL Lymph # (Auto) (5915-0667) /uL Finney # (Auto) (0-900) /uL Eos # (Auto) (0-450) /uL Baso # (Auto) (0-100) /uL RBC Morphology Poikilocytosis Anisocytosis Microcytosis Ovalocytes PT (10.1-12.7) SECONDS INR (0.9-1.3) APTT (26.4-36.2) SECONDS D-Dimer < 200 (<230) ng/mL Sodium (137-145) mmol/L Potassium (3.4-5.1) mmol/L Chloride (98-107) mmol/L Carbon Dioxide (22-32) mmol/L BUN (9-20) mg/dL Creatinine (0.66-1.25) mg/dL Estimated GFR (>60) mL/min BUN/Creatinine Ratio (6-22) Glucose (70-100) mg/dL Calcium (8.4-10.2) mg/dL Total Bilirubin (0.2-1.3) mg/dL AST (17-59) IU/L ALT (<50) IU/L Alkaline Phosphatase (38-126) U/L Total Creatine Kinase (55-170) U/L CK-MB (CK-2) (<2.37) ng/mL CK-MB (CK-2) Rel Index (1.5-5.0) % Troponin I (0.01-0.034) ng/mL NT-Pro-B Natriuret Pep 21 (<125) pg/mL Total Protein (6.3-8.2) g/dL Albumin (3.5-5.0) g/dL Globulin (1.7-4.1) g/dL Albumin/Globulin Ratio (1.0-2.8) Amylase 73 (30-110) U/L Lipase (23-300) U/L 04/05/20 Range/Units 18:21 WBC (4.5-11.0) X10^3/uL RBC (4.5-5.9) X10^6/uL Hgb (13.5-17.5) g/dL Hct (41-53) % MCV (80-100) fL MCH (26-34) PG MCHC (30-36) % RDW (11.6-14.8) % Plt Count (150-400) X10^3/uL Neut % (Auto) (50-75) % Lymph % (Auto) (25-40) % Finney % (Auto) (3-14) % Eos % (Auto) (2-4) % Baso % (Auto) (0-2) % Neut # (Auto) (0340-8247) /uL Lymph # (Auto) (7695-2630) /uL Finney # (Auto) (0-900) /uL Eos # (Auto) (0-450) /uL Baso # (Auto) (0-100) /uL RBC Morphology Poikilocytosis Anisocytosis Microcytosis Ovalocytes PT (10.1-12.7) SECONDS INR (0.9-1.3) APTT (26.4-36.2) SECONDS D-Dimer (<230) ng/mL Sodium (137-145) mmol/L Potassium (3.4-5.1) mmol/L Chloride (98-107) mmol/L Carbon Dioxide (22-32) mmol/L BUN (9-20) mg/dL Creatinine (0.66-1.25) mg/dL Estimated GFR (>60) mL/min BUN/Creatinine Ratio (6-22) Glucose (70-100) mg/dL Calcium (8.4-10.2) mg/dL Total Bilirubin (0.2-1.3) mg/dL AST (17-59) IU/L ALT (<50) IU/L Alkaline Phosphatase (38-126) U/L Total Creatine Kinase 118 (55-170) U/L CK-MB (CK-2) 0.59 (<2.37) ng/mL CK-MB (CK-2) Rel Index 0.5 L (1.5-5.0) % Troponin I < 0.012 (0.01-0.034) ng/mL NT-Pro-B Natriuret Pep (<125) pg/mL Total Protein (6.3-8.2) g/dL Albumin (3.5-5.0) g/dL Globulin (1.7-4.1) g/dL Albumin/Globulin Ratio (1.0-2.8) Amylase (30-110) U/L Lipase (23-300) U/L Imaging Data Chest x-ray: Radiologist's Impression: CT scan - chest: Radiologist's Impression: [address] [place] [id number] Scan Report Signed Patient: Jasson Brown#: [id number] : 1970Acct:[id number] Age/Sex: 49 / MDate of Service: 07/14/19 Loc: ED Accession Number: [id number] Procedure: CT chest w con Ordering Provider: Latanya StoddardP- PROCEDURE: CT CHEST W CON INDICATIONS: Left sided cp TECHNIQUE: After the administration of intravenous contrast, 5 mm thick sections acquired from the pulmonary apices to the posterior costophrenic angles. 1 mm axial lung, 5 mm thick coronal and sagittal reformats and 7 mm axial MIP were acquired. For radiation dose reduction, the following was used: automated exposure control, adjustment of mA and/or kV according to patient size. COMPARISON: None. FINDINGS: Image quality: Excellent. Lungs and pleura: No acute air space opacities. No pleural effusions or pneumothorax. Central and peripheral airways are patent and normal in caliber. Mediastinum: Heart size is normal. Mild coronary artery calcification. No pericardial effusion. No mediastinal or hilar adenopathy by size criteria. Thoracic aorta and central pulmonary arteries are normal in size. Esophagus is normal in caliber. No hiatal hernia. Bones and chest wall: No suspicious bony lesions. No vertebral body compression fractures. No axillary or supraclavicular adenopathy by size criteria. Thyroid gland is normal. Abdomen: Visualized upper abdomen demonstrates mild hepatomegaly and hepatic steatosis. IMPRESSION: 1. Mild artery calcification. 2. Mild hepatomegaly and hepatic steatosis. 3. No CT evidence of acute cardiopulmonary disease. Dictated by: Stacie Fowler M.D. on 07/14/2019 at 19:12 Approved by: Stacie Fowler M.D. on 07/14/2019 at 19:16 ECG Data Attestation: I personally reviewed and interpreted this ECG as follows: Interpretation: Sinus rhythm. Ventricular rate 75. P.r. interval 186. QRS 105. Viewed by Dr Robertson 15:26 [facility] Narrative Medical decision making narrative: The patient is a 49-year-old male who presents with a chief complaint of left-sided chest pain, ongoing for the past month, worse over the past few days. He has two negative troponins, normal EKG, but multiple comorbidities for cardiac disease. Thus I spoke with Dr. Modi from Cardiology, who recommends admitting the patient in doing a nuclear med stress test in the morning. I spoke with Peg Ocampo, admitting hospitalist, who accepts the patient for observation, requests an abdomen pelvis noncontrast prior to his arrival on the floor. However we do not need to wait for this study to be resulted for the patient to be transferred to the floor. Patient states understanding and appreciation. <Robert Tejeda, - Last Filed: 07/15/19 01:12> Lab Data Labs: Lab Results 07/14/19 07/14/1907/13/20 Range/Units 15:30 15:30 15:30 WBC 8.1 (4.5-11.0) X10^3/uL RBC 5.98 H (4.5-5.9) X10^6/uL Hgb 12.6 L (13.5-17.5) g/dL Hct 40.3 L (41-53) % MCV 67.3 L (80-100) fL MCH 21.1 L (26-34) PG MCHC 31.4 (30-36) % RDW 16.9 H (11.6-14.8) % Plt Count 241 (150-400) X10^3/uL Neut % (Auto) 61.5 (50-75) % Lymph % (Auto) 26.1 (25-40) % Finney % (Auto) 7.1 (3-14) % Eos % (Auto) 4.8 H (2-4) % Baso % (Auto) 0.5 (0-2) % Neut # (Auto) 5000 (2537-7785) /uL Lymph # (Auto) 2100 (2216-6983) /uL Finney # (Auto) 600 (0-900) /uL Eos # (Auto) 400 (0-450) /uL Baso # (Auto) 0 (0-100) /uL RBC Morphology See below Poikilocytosis 2+ H Anisocytosis 1+ H Microcytosis 1+ H Ovalocytes 1+ H PT 12.2 (10.1-12.7) SECONDS INR 1.1 (0.9-1.3) APTT 36 (26.4-36.2) SECONDS D-Dimer (<230) ng/mL Sodium 139 (137-145) mmol/L Potassium 4.0 (3.4-5.1) mmol/L Chloride 103 (98-107) mmol/L Carbon Dioxide 28 (22-32) mmol/L BUN 16 (9-20) mg/dL Creatinine 0.72 (0.66-1.25) mg/dL Estimated GFR > 60.0 (>60) mL/min BUN/Creatinine Ratio 22.2 H (6-22) Glucose 124 H (70-100) mg/dL Calcium 9.7 (8.4-10.2) mg/dL Total Bilirubin 0.4 (0.2-1.3) mg/dL AST 34 (17-59) IU/L ALT 49 (<50) IU/L Alkaline Phosphatase 104 (38-126) U/L Total Creatine Kinase 135 (55-170) U/L CK-MB (CK-2) 0.74 (<2.37) ng/mL CK-MB (CK-2) Rel Index 0.5 L (1.5-5.0) % Troponin I < 0.012 (0.01-0.034) ng/mL NT-Pro-B Natriuret Pep (<125) pg/mL Total Protein 8.4 H (6.3-8.2) g/dL Albumin 4.5 (3.5-5.0) g/dL Globulin 3.9 (1.7-4.1) g/dL Albumin/Globulin Ratio 1.2 (1.0-2.8) Amylase (30-110) U/L Lipase 84 (23-300) U/L 07/14/19 07/14/19 07/14/19 Range/Units 15:30 15:30 15:30 WBC (4.5-11.0) X10^3/uL RBC (4.5-5.9) X10^6/uL Hgb (13.5-17.5) g/dL Hct (41-53) % MCV (80-100) fL MCH (26-34) PG MCHC (30-36) % RDW (11.6-14.8) % Plt Count (150-400) X10^3/uL Neut % (Auto) (50-75) % Lymph % (Auto) (25-40) % Finney % (Auto) (3-14) % Eos % (Auto) (2-4) % Baso % (Auto) (0-2) % Neut # (Auto) (2778-5487) /uL Lymph # (Auto) (9048-2184) /uL Finney # (Auto) (0-900) /uL Eos # (Auto) (0-450) /uL Baso # (Auto) (0-100) /uL RBC Morphology Poikilocytosis Anisocytosis Microcytosis Ovalocytes PT (10.1-12.7) SECONDS INR (0.9-1.3) APTT (26.4-36.2) SECONDS D-Dimer < 200 (<230) ng/mL Sodium (137-145) mmol/L Potassium (3.4-5.1) mmol/L Chloride (98-107) mmol/L Carbon Dioxide (22-32) mmol/L BUN (9-20) mg/dL Creatinine (0.66-1.25) mg/dL Estimated GFR (>60) mL/min BUN/Creatinine Ratio (6-22) Glucose (70-100) mg/dL Calcium (8.4-10.2) mg/dL Total Bilirubin (0.2-1.3) mg/dL AST (17-59) IU/L ALT (<50) IU/L Alkaline Phosphatase (38-126) U/L Total Creatine Kinase (55-170) U/L CK-MB (CK-2) (<2.37) ng/mL CK-MB (CK-2) Rel Index (1.5-5.0) % Troponin I (0.01-0.034) ng/mL NT-Pro-B Natriuret Pep 21 (<125) pg/mL Total Protein (6.3-8.2) g/dL Albumin (3.5-5.0) g/dL Globulin (1.7-4.1) g/dL Albumin/Globulin Ratio (1.0-2.8) Amylase 73 (30-110) U/L Lipase (23-300) U/L 04//20 Range/Units 18:21 WBC (4.5-11.0) X10^3/uL RBC (4.5-5.9) X10^6/uL Hgb (13.5-17.5) g/dL Hct (41-53) % MCV (80-100) fL MCH (26-34) PG MCHC (30-36) % RDW (11.6-14.8) % Plt Count (150-400) X10^3/uL Neut % (Auto) (50-75) % Lymph % (Auto) (25-40) % Finney % (Auto) (3-14) % Eos % (Auto) (2-4) % Baso % (Auto) (0-2) % Neut # (Auto) (0235-2215) /uL Lymph # (Auto) (0996-8750) /uL Finney # (Auto) (0-900) /uL Eos # (Auto) (0-450) /uL Baso # (Auto) (0-100) /uL RBC Morphology Poikilocytosis Anisocytosis Microcytosis Ovalocytes PT (10.1-12.7) SECONDS INR (0.9-1.3) APTT (26.4-36.2) SECONDS D-Dimer (<230) ng/mL Sodium (137-145) mmol/L Potassium (3.4-5.1) mmol/L Chloride (98-107) mmol/L Carbon Dioxide (22-32) mmol/L BUN (9-20) mg/dL Creatinine (0.66-1.25) mg/dL Estimated GFR (>60) mL/min BUN/Creatinine Ratio (6-22) Glucose (70-100) mg/dL Calcium (8.4-10.2) mg/dL Total Bilirubin (0.2-1.3) mg/dL AST (17-59) IU/L ALT (<50) IU/L Alkaline Phosphatase (38-126) U/L Total Creatine Kinase 118 (55-170) U/L CK-MB (CK-2) 0.59 (<2.37) ng/mL CK-MB (CK-2) Rel Index 0.5 L (1.5-5.0) % Troponin I < 0.012 (0.01-0.034) ng/mL NT-Pro-B Natriuret Pep (<125) pg/mL Total Protein (6.3-8.2) g/dL Albumin (3.5-5.0) g/dL Globulin (1.7-4.1) g/dL Albumin/Globulin Ratio (1.0-2.8) Amylase (30-110) U/L Lipase (23-300) U/L Discharge Plan Departure Patient Disposition: Admitted as Observation Clinical Impression: Chest pain Qualifiers: Chest pain type: unspecified Qualified Code(s): R07.9 - Chest pain, unspecified Discharge Date/Time: 07/14/19 21:00 Admit Date/Time: 07/14/19 20:26 Admit Provider: Bridget Ocampo <Robert Tejeda DO - Last Filed: 07/15/19 01:12> Cosign ED Attending Cosignature Attestation: I was immediately available in the department for consultation. This documentation has been reviewed and I agree with assessment and plan. Supervised by Robert Tejeda DO
[2019-07-14 15:42] LABS: INR 1.1 (0.9-1.3); Prothrombin Time 12.2 SECONDS (10.1-12.7)
[2019-07-14 15:45] LABS: PTT Partial Thromboplastin Tim 36 SECONDS (26.4-36.2)
[2019-07-14 15:48] LABS: Alanine Aminotransferase 49 IU/L (<50); Albumin 4.5 g/dL (3.5-5.0); Albumin Globulin Ratio 1.2 (1.0-2.8); Alkaline Phosphatase 104 U/L (38-126); Aspartate Aminotransferase 34 IU/L (17-59); BUN Creatinine Ratio 22.2 (6-22); Bilirubin Total 0.4 mg/dL (0.2-1.3); Blood Urea Nitrogen 16 mg/dL (9-20); Calcium 9.7 mg/dL (8.4-10.2); Carbon Dioxide 28 mmol/L (22-32); Chloride 103 mmol/L (98-107); Creatine Kinase 135 U/L (55-170); Estimated Glomerular Filt Rate > 60.0 mL/min (>60); Globulin 3.9 g/dL (1.7-4.1); Glucose 124 mg/dL (70-100); HEMOLYSIS < 15 (0-50); Lipase 84 U/L (23-300); Sodium 139 mmol/L (137-145); Total Protein 8.4 g/dL (6.3-8.2)
[2019-07-14 15:57] LABS: Anisocytosis 1+; Microcytosis 1+; Poikilocytosis 2+
[2019-07-14 15:58] LABS: Ovalocytes 1+
[2019-07-14 15:59] LABS: Troponin I < 0.012 ng/mL (0.01-0.034)
[2019-07-14 16:00] LABS: Amylase 73 U/L (30-110)
[2019-07-14] MEDS: KETOROLAC 60 MG/2 ML VIAL 30 MG IV (16:02)
[2019-07-14 16:03] LABS: CKMB % Relative Index 0.5 % (1.5-5.0); Creatine Kinase MB 0.74 ng/mL (<2.37)
[2019-07-14 16:07] LABS: D Dimer < 200 ng/mL (<230)
[2019-07-14 16:10] LABS: NT-proBNP (BNP-Adult 18+) 21 pg/mL (<125)
[2019-07-14] MEDS: fentaNYL 100 MCG/2 ML INJ 50 MCG IV (16:55)
[2019-07-14] MEDS: CYCLOBENZAPRINE 10 MG TABLET PO (17:12)
[2019-07-14] MEDS: LIDOCAINE PATCH 1 EACH ADH..PATCH TOP (17:12)
[2019-07-14] MEDS: ONDANSETRON 4 MG/2 ML INJ IV (17:48)
--- NOTE | 2019-07-14 18:21 | DI.CT.S_ITS ---
PROCEDURE: CT CHEST W CON INDICATIONS: Left sided cp TECHNIQUE: After the administration of intravenous contrast, 5 mm thick sections acquired from the pulmonary apices to the posterior costophrenic angles. 1 mm axial lung, 5 mm thick coronal and sagittal reformats and 7 mm axial MIP were acquired. For radiation dose reduction, the following was used: automated exposure control, adjustment of mA and/or kV according to patient size. COMPARISON: None. FINDINGS: Image quality: Excellent. Lungs and pleura: No acute air space opacities. No pleural effusions or pneumothorax. Central and peripheral airways are patent and normal in caliber. Mediastinum: Heart size is normal. Mild coronary artery calcification. No pericardial effusion. No mediastinal or hilar adenopathy by size criteria. Thoracic aorta and central pulmonary arteries are normal in size. Esophagus is normal in caliber. No hiatal hernia. Bones and chest wall: No suspicious bony lesions. No vertebral body compression fractures. No axillary or supraclavicular adenopathy by size criteria. Thyroid gland is normal. Abdomen: Visualized upper abdomen demonstrates mild hepatomegaly and hepatic steatosis. IMPRESSION: 1. Mild artery calcification. 2. Mild hepatomegaly and hepatic steatosis. 3. No CT evidence of acute cardiopulmonary disease. Dictated by: Stacie Fowler M.D. on 07/14/2019 at 19:12 Approved by: Stacie Fowler M.D. on 07/14/2019 at 19:16
[2019-07-14 18:37] LABS: Creatine Kinase 118 U/L (55-170)
[2019-07-14 18:50] LABS: Troponin I < 0.012 ng/mL (0.01-0.034)
[2019-07-14 18:53] LABS: CKMB % Relative Index 0.5 % (1.5-5.0); Creatine Kinase MB 0.59 ng/mL (<2.37)
[2019-07-14] MEDS: methylPREDNISolone 125 MG/2 ML VIAL IV (19:58)
[2019-07-14] MEDS: ASPIRIN 81 MG CHEW TAB 324 MG PO (19:58)
--- NOTE | 2019-07-14 20:11 | DI.CT.S_ITS ---
PROCEDURE: CT ABDOMEN PELVIS WO CON INDICATIONS: L rib pain TECHNIQUE: Noncontrast 5 mm thick sections acquired from the diaphragms to the symphysis. 5 mm coronal and sagittal reformats were then performed. For radiation dose reduction, the following was used: automated exposure control, adjustment of mA and/or kV according to patient size. COMPARISON: None. FINDINGS: Image quality: Excellent. ABDOMEN: Lung bases: Lung bases are clear. Heart size is normal. Solid organs: Liver is enlarged and mildly diffusely hypodense. Gallbladder is within normal limits. Pancreas is normal in contours. Spleen is normal in size. No adrenal nodules. Kidneys are normal in size, without hydronephrosis or nephrolithiasis. Small left renal cyst. A few adjacent areas of retained contrast are present in the left renal cortex, nonspecific. Peritoneum and bowel: Unenhanced bowel loops demonstrate normal wall thickness and caliber. Diverticulosis of the descending and sigmoid colon. No acute diverticulitis. No free fluid or air. Nodes and vessels: No retroperitoneal or mesenteric adenopathy by size criteria. Aorta and inferior vena cava are normal in caliber. Miscellaneous: Tiny fat-containing umbilical hernia.. PELVIS: Genitourinary: Bladder wall thickness is normal. Miscellaneous: No inguinal hernias or adenopathy. Bones: No suspicious bony lesions. No vertebral body compression fractures. IMPRESSION: 1. No CT evidence of acute abdominal process. 2. Mild hepatomegaly and hepatic steatosis. 3. No evidence of obstructive uropathy. Dictated by: Stacie Fowler M.D. on 07/14/2019 at 21:42 Approved by: Stacie Fowler M.D. on 07/14/2019 at 21:48
[2019-07-15 00:24] LABS: Troponin I < 0.012 ng/mL (0.01-0.034)
--- NOTE | 2019-07-15 01:49 | P.HP_ITS ---
History of Present Illness History of Present Illness Date Patient Seen: 07/14/19 Time Patient Seen: 23:00 Chief complaint: CP, dizziness, left hand numb Narrative: Jasson Reynolds is a 49-year-old male with a complaint of chest pain, and shortness of breath who improved upon presentation to the emergency room. He stated it started on left-sided stab be pain he particularly noticed it when he was lying down on the left side. It hurts more when he coughs. He states that he also had pain extending from his elbow to his hand but apparently no radiation into his jaw, shoulder or upper arm. The patient recently underwent an exercise stress test which was apparently normal. He has a past medical history of a NSTEMI, coronary artery disease, diabetes and a heart catheterization but no stents. He has had multiple ED visits and a recent admission to [facility] for a chest pain rule out in early June of this year. He denies having fever or chills but stated that he had sweats he endorses chest pain palpitations and dizziness upon arising from million position and was short of breath today. He states that he developed nausea after having been administered morphine. He denies dysuria, hematuria, muscle aches and pains, abdominal pain or numbing and tingling of his upper lower extremities. In the ED the patient's pain was not relieved with nitroglycerin or morphine but was relieved with IV fentanyl. Patient History Medical History (Updated 07/15/19 @ 01:56 by CHELITA Lovett) Carpal tunnel syndrome (Acute) Diabetes (Acute) History of non-ST elevation myocardial infarction (NSTEMI) (Acute) HTN (hypertension) (Acute) Morbid obesity (Acute) JESSICA (obstructive sleep apnea) (Acute) Surgical History (Updated 07/15/19 @ 01:57 by CHELITA Lovett) Status post carpal tunnel release (Acute) Family & Social History Family History (Updated 07/15/19 @ 01:58 by CHELITA Lovett) Father CAD (coronary artery disease) History of coronary artery bypass graft x 2 Mother Cancer Social History: household members family Prior Living Arrangements House Safety & Behavioral: Feels Safe in Current Yes Environment Been Physically Hurt or No Threatened By a Person Suicidal Ideation Description None Suicide Plan Description No Plan Tobacco & Substance use: Smoking Status Never smoker alcohol intake never alcohol intake frequency 0-2 drinks per day Substance Use Type does not use Meds Home Medications and Allergies Home Medications Medication Instructions Recorded Confirmed Type OMEGA-3 FATTY ACIDS (FISH OIL) 500 mg PO DAILY #0 05/09/16 07/14/19 History aspirin 81 mg PO QPM #0 05/09/16 07/14/19 History atorvastatin [Lipitor] 40 mg PO QPM #0 05/09/16 07/14/19 History metformin [Glucophage XR] 1,000 mg PO BID #0 05/09/16 07/14/19 History metoprolol succinate [Toprol XL] 50 mg PO QPM #0 05/08/17 07/14/19 History losartan 50 mg PO QPM 06/11/19 07/14/19 History Allergies Allergy/AdvReac Type Severity Reaction Status Date / Time morphine [MORPHINE] AdvReac Severe VOMITING Verified 06/11/19 12:47 Review of Systems Review of Systems ROS: Yes All systems reviewed with the patient and are negative except as otherwise documented Exam Vital Signs (past 8 hours): - 07/14/19 18:00 07/14/19 19:00 07/14/19 19:56 Temperature Pulse Rate 65 79 85 Respiratory Rate 23 19 22 Blood Pressure Blood Pressure [Left Arm] 119/70 109/75 120/65 Pulse Oximetry 94 98 96 07/14/19 20:30 07/14/19 21:15 07/14/19 23:03 Temperature 97.1 F L Pulse Rate 67 78 77 Respiratory Rate 20 20 16 Blood Pressure 131/69 Blood Pressure [Left Arm] 120/65 Pulse Oximetry 95 98 97 Oxygen Delivery Method BiPAP Oxygen Flow Rate 0 Narrative Exam Narrative: Gen: Alert, oriented, morbidly obese 49 y.o. Eurasian male, NAD HEENT: normocephalic, atraumatic, conjunctiva clear, sclera non-icteric, oral mucosa pink and moist Neck: supple, full ROM, no JVD Resp: Lungs CTA, non-labored breathing CV: RRR, no murmur or rubs Abd: obese, soft, non-tender, normoactive BTs Skin: no lesions or rashes, dry and intact Neuro: Alert and oriented X 4 w/no focal deficits Extremities: moves all 4 extremities, is ambulatory, negative Joel?s sign Psyche: normal mood and affect. Objective Labs Result Diagrams: 07/14/19 15:30 07/14/19 15:30 Labs: Laboratory Results - last 24 hr 07/14/19 07/14/19 07/14/19 15:30 15:30 15:30 WBC 8.1 RBC 5.98 H Hgb 12.6 L Hct 40.3 L MCV 67.3 L MCH 21.1 L MCHC 31.4 RDW 16.9 H Plt Count 241 Neut % (Auto) 61.5 Lymph % (Auto) 26.1 [place] % (Auto) 7.1 Eos % (Auto) 4.8 H Baso % (Auto) 0.5 Neut # (Auto) 5000 Lymph # (Auto) 2100 [place] # (Auto) 600 Eos # (Auto) 400 Baso # (Auto) 0 RBC Morphology See below Poikilocytosis 2+ H Anisocytosis 1+ H Microcytosis 1+ H Ovalocytes 1+ H PT 12.2 INR 1.1 APTT 36 D-Dimer Sodium 139 Potassium 4.0 Chloride 103 Carbon Dioxide 28 BUN 16 Creatinine 0.72 Estimated GFR > 60.0 BUN/Creatinine Ratio 22.2 H Glucose 124 H Calcium 9.7 Total Bilirubin 0.4 AST 34 ALT 49 Alkaline Phosphatase 104 Total Creatine Kinase 135 CK-MB (CK-2) 0.74 CK-MB (CK-2) Rel Index 0.5 L Troponin I < 0.012 NT-Pro-B Natriuret Pep Total Protein 8.4 H Albumin 4.5 Globulin 3.9 Albumin/Globulin Ratio 1.2 Amylase Lipase 84 07/14/19 07/14/19 07/14/19 15:30 15:30 15:30 WBC RBC Hgb Hct MCV MCH MCHC RDW Plt Count Neut % (Auto) Lymph % (Auto) [place] % (Auto) Eos % (Auto) Baso % (Auto) Neut # (Auto) Lymph # (Auto) [place] # (Auto) Eos # (Auto) Baso # (Auto) RBC Morphology Poikilocytosis Anisocytosis Microcytosis Ovalocytes PT INR APTT D-Dimer < 200 Sodium Potassium Chloride Carbon Dioxide BUN Creatinine Estimated GFR BUN/Creatinine Ratio Glucose Calcium Total Bilirubin AST ALT Alkaline Phosphatase Total Creatine Kinase CK-MB (CK-2) CK-MB (CK-2) Rel Index Troponin I NT-Pro-B Natriuret Pep 21 Total Protein Albumin Globulin Albumin/Globulin Ratio Amylase 73 Lipase 04/05/20 04/05/20 18:21 23:51 WBC RBC Hgb Hct MCV MCH MCHC RDW Plt Count Neut % (Auto) Lymph % (Auto) [place] % (Auto) Eos % (Auto) Baso % (Auto) Neut # (Auto) Lymph # (Auto) [place] # (Auto) Eos # (Auto) Baso # (Auto) RBC Morphology Poikilocytosis Anisocytosis Microcytosis Ovalocytes PT INR APTT D-Dimer Sodium Potassium Chloride Carbon Dioxide BUN Creatinine Estimated GFR BUN/Creatinine Ratio Glucose Calcium Total Bilirubin AST ALT Alkaline Phosphatase Total Creatine Kinase 118 CK-MB (CK-2) 0.59 CK-MB (CK-2) Rel Index 0.5 L Troponin I < 0.012 < 0.012 NT-Pro-B Natriuret Pep Total Protein Albumin Globulin Albumin/Globulin Ratio Amylase Lipase Assessment & Plan Assessment & Plan narrative: Jasson Brown will be observed overnight so that he can undergo nuclear stress testing in the morning. Chest pain, acute, present on admission -troponins x4 have all been negative -patient will undergo a pharmacological nuclear stress test tomorrow -cardiology consult ordered and appreciated. Essential hypertension, chronic, present on admission -per his med list patient medications at night -if his nuclear pharmacological stress test is done tomorrow he will take his normally scheduled metoprolol succinate 50 mg in the evening along with his losartan 50 mg p.o. in the evening Hyperlipidemia, chronic, present on admission -fasting lipid panel in the morning -continue home dose of atorvastatin 40 mg p.o. q.p.m. Diabetes type 2, chronic, present on admission -metformin is held, low-dose correctional insulin dosing -Hemoglobin A1c ordered for the morning Obstructive sleep apnea, chronic, present on admission -I have requested that RT set him up with a CPAP machine for the night Morbid obesity, present on admission Consults: Cardiology per chest pain protocol Patient is placed into observation Stay is likely to not exceed 2 midnights. FEN: IV saline lock, carb control diet, BMP in the am. VTE prophylaxis: Bilateral SCDs, Enoxaparin 40 mg subQ daily Dispo: Likely discharge to home Code Status: as discussed with patient Quality VTE Deep Vein Thrombosis/Pulmonary Embolism Present on Admission: No
[2019-07-15 02:08] VITALS: BP 113/64; PULSE 60; RESP 16; TEMP 36.6; O2SAT 98
[2019-07-15 06:08] VITALS: BP 125/74; PULSE 87; RESP 16; TEMP 36.3; O2SAT 98
[2019-07-15 06:34] LABS: Add Manual Diff / Slide Review NO; Basophils Absolute Auto 0 /uL (0-100); Basophils Percent Auto 0.3 % (0-2); Eosinophils Absolute Auto 0 /uL (0-450); Hematocrit 41.9 % (41-53); Hemoglobin 13.1 g/dL (13.5-17.5); Lymphocytes Absolute Auto 1300 /uL (1100-4500); Lymphocytes Percent Auto 9.1 % (25-40); Mean Corpuscular HGB Conc 31.4 % (30-36); Mean Corpuscular Hemoglobin 21.1 PG (26-34); Mean Corpuscular Volume 67.2 fL (80-100); Monocytes Absolute Auto 100 /uL (0-900); Monocytes Percent Auto 0.8 % (3-14); Neutrophils Absolute Auto 12600 /uL (1500-7000); Neutrophils Percent Auto 89.8 % (50-75); Platelet Count 255 X10^3/uL (150-400); Red Blood Cell Count 6.23 X10^6/uL (4.5-5.9); Red Cell Distribution Width 16.9 % (11.6-14.8)
[2019-07-15 06:41] LABS: BUN Creatinine Ratio 25.7 (6-22); Blood Urea Nitrogen 18 mg/dL (9-20); Calcium 10.1 mg/dL (8.4-10.2); Carbon Dioxide 23 mmol/L (22-32); Chloride 104 mmol/L (98-107); Cholesterol 171 mg/dL (140-199); Estimated Glomerular Filt Rate > 60.0 mL/min (>60); Glucose 161 mg/dL (70-100); HDL Cholesterol 35 mg/dL (40-60); HEMOLYSIS < 15 (0-50); LDL Cholesterol Calculated 123 mg/dL (<100); Potassium 4.3 mmol/L (3.4-5.1); Sodium 139 mmol/L (137-145); Triglycerides 66 mg/dL (35-150)
[2019-07-15 06:45] LABS: Hemoglobin A1C% w Est Avg Glu 6.8 % (4.0-6.0)
[2019-07-15 07:12] LABS: Anisocytosis 2+
[2019-07-15 07:44] VITALS: BP 120/67; PULSE 88; RESP 16; TEMP 36.3; O2SAT 93
[2019-07-15] MEDS: ENOXAPARIN 40 MG/0.4 ML SYRINGE SUBCUT (08:32)
[2019-07-15] MEDS: ASPIRIN EC 81 MG TABLET PO (08:32)
--- NOTE | 2019-07-15 11:16 | PC.NURSE ---
Pt taken downstairs by DI nurse for stress test
--- NOTE | 2019-07-15 11:45 | PM.TREADMILL ---
Cardiac Stress Test Report Referral & Results Date Patient Seen: 07/15/19 Time Patient Seen: 11:45 Requesting provider: Bridget Ocampo Indication: chest pain Rest ECG: sinus rhythm Procedure Note: After Lexiscan injection had minimal dyspnea, minimal chest discomfort. Baseline ECG sinus rhythm No significant ST changes on ECG after Lexiscan injection, no ectopy. No reversal agents needed. Impression: Normal Lexiscan nuclear stress test MIBI images pending. Please note: Actual ECG tracings can be found in the PACS system.
[2019-07-15] MEDS: ONDANSETRON 4 MG ODT PO (12:52)
[2019-07-15] MEDS: INSULIN ASPART 100 UNIT/ML INSULN PEN SUBCUT (12:54)
[2019-07-15 12:57] VITALS: BP 125/68; PULSE 111; RESP 16; TEMP 36.3; O2SAT 96
--- NOTE | 2019-07-15 14:14 | P.DS_ITS ---
History of Present Illness History of Present Illness Date Patient Seen: 07/15/19 Chief complaint: CP, dizziness, left hand numb Narrative: Jasson Reynolds is a 49-year-old male with a complaint of chest pain, and shortness of breath who improved upon presentation to the emergency ro om. He stated it started on left-sided stab be pain he particularly noticed it when he was lying down on the left side. It hurts more when he coughs. He states that he also had pain extending from his elbow to his hand but apparently no radiation into his jaw, shoulder or upper arm. The patient recently underwent an exercise stress test which was apparently normal. He has a past medical history of a NSTEMI, coronary artery disease, diabetes and a heart catheterization but no stents. He has had multiple ED visits and a recent admission to [facility] for a chest pain rule out in early June of this year. He denies having fever or chills but stated that he had sweats he endorses chest pain palpitations and dizziness upon arising from million position and was short of breath today. He states that he developed nausea after having been administered morphine. He denies dysuria, hematuria, muscle aches and pains, abdominal pain or numbing and tingling of his upper lower extremities. In the ED the patient's pain was not relieved with nitroglycerin or morphine but was relieved with IV fentanyl. Discharge Providers Provider Date of admission: 07/14/19 20:26 Discharge Date: 07/15/19 Primary care physician: Chaz Monique MD Consults: 07/14/19 23:33 Consult to Physician Routine Comment: Consulting Provider: Abelino Modi Reason for consultation: chest pain Has provider been notified: Yes Discharge provider: Opal Ayala MD Summary Hospital Course Discharge Diagnosis: 1. Chest Pain-likely non cardiac 2. 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 Type 2 Diabetes Mellitus 4. Hypertension 5. Hyperlipidemia 6. Morbid Obesity Hospital Course: Patient was admitted to the hospital for recurrent chest pain. He reported left rib pain worse with palpation and inspiration. Patient had pain all night. He had minimal shortness of breath with the chest pain. Patient underwent a nuclear medicine stress test which revealed no evidence of reversible ischemia. Patient was given results. I recommended Tylenol and ibuprofen for the chest pain. Patient is instructed to follow up with his PCP for further evaluation. Patient was deemed appropriate for discharge home. Status at Discharge Cognitive/behavioral status at discharge: oriented Functional status at discharge: independent ambulation Overall status at discharge: patient is back to baseline Time Spent with Patient Time spent: Less than 30 minutes Time spent discussing smoking cessation with patient: 3 to 10 minutes Exam Vital Signs (past 8 hours): - 07/15/19 07:44 07/15/19 12:57 Temperature 97.4 F L 97.4 F L Pulse Rate 88 111 H Respiratory Rate 16 16 Blood Pressure 120/67 125/68 Pulse Oximetry 93 96 Oxygen Delivery Method CPAP Oxygen Flow Rate 0 Narrative Exam Narrative: Pleasant male in no acute distress Lungs: Clear to auscultation CV: RRR nl Sl S2 Abd: soft/non tender/ non distended Ext: No Edema Objective Labs Result Diagrams: 07/15/19 06:11 07/15/19 06:11 Labs: Laboratory Results - last 24 hr 07/14/19 07/14/19 07/14/19 15:30 15:30 15:30 WBC 8.1 RBC 5.98 H Hgb 12.6 L Hct 40.3 L MCV 67.3 L MCH 21.1 L MCHC 31.4 RDW 16.9 H Plt Count 241 Neut % (Auto) 61.5 Lymph % (Auto) 26.1 [place] % (Auto) 7.1 Eos % (Auto) 4.8 H Baso % (Auto) 0.5 Neut # (Auto) 5000 Lymph # (Auto) 2100 [place] # (Auto) 600 Eos # (Auto) 400 Baso # (Auto) 0 RBC Morphology See below Poikilocytosis 2+ H Anisocytosis 1+ H Microcytosis 1+ H Ovalocytes 1+ H PT 12.2 INR 1.1 APTT 36 D-Dimer Sodium 139 Potassium 4.0 Chloride 103 Carbon Dioxide 28 BUN 16 Creatinine 0.72 Estimated GFR > 60.0 BUN/Creatinine Ratio 22.2 H Glucose 124 H Hemoglobin A1c Calcium 9.7 Total Bilirubin 0.4 AST 34 ALT 49 Alkaline Phosphatase 104 Total Creatine Kinase 135 CK-MB (CK-2) 0.74 CK-MB (CK-2) Rel Index 0.5 L Troponin I < 0.012 NT-Pro-B Natriuret Pep Total Protein 8.4 H Albumin 4.5 Globulin 3.9 Albumin/Globulin Ratio 1.2 Triglycerides Cholesterol LDL Cholesterol, Calc HDL Cholesterol Amylase Lipase 84 04/05/20 04/05/20 04/05/20 15:30 15:30 15:30 WBC RBC Hgb Hct MCV MCH MCHC RDW Plt Count Neut % (Auto) Lymph % (Auto) [place] % (Auto) Eos % (Auto) Baso % (Auto) Neut # (Auto) Lymph # (Auto) [place] # (Auto) Eos # (Auto) Baso # (Auto) RBC Morphology Poikilocytosis Anisocytosis Microcytosis Ovalocytes PT INR APTT D-Dimer < 200 Sodium Potassium Chloride Carbon Dioxide BUN Creatinine Estimated GFR BUN/Creatinine Ratio Glucose Hemoglobin A1c Calcium Total Bilirubin AST ALT Alkaline Phosphatase Total Creatine Kinase CK-MB (CK-2) CK-MB (CK-2) Rel Index Troponin I NT-Pro-B Natriuret Pep 21 Total Protein Albumin Globulin Albumin/Globulin Ratio Triglycerides Cholesterol LDL Cholesterol, Calc HDL Cholesterol Amylase 73 Lipase 07/14/19 07/14/19 07/15/19 18:21 23:51 06:11 WBC 14.0 H D RBC 6.23 H Hgb 13.1 L Hct 41.9 MCV 67.2 L MCH 21.1 L MCHC 31.4 RDW 16.9 H Plt Count 255 Neut % (Auto) 89.8 H D Lymph % (Auto) 9.1 L [place] % (Auto) 0.8 L Eos % (Auto) 0.0 L Baso % (Auto) 0.3 Neut # (Auto) 58326 H Lymph # (Auto) 1300 [place] # (Auto) 100 Eos # (Auto) 0 Baso # (Auto) 0 RBC Morphology Not Reportable Poikilocytosis Anisocytosis 2+ H Microcytosis Ovalocytes PT INR APTT D-Dimer Sodium Potassium Chloride Carbon Dioxide BUN Creatinine Estimated GFR BUN/Creatinine Ratio Glucose Hemoglobin A1c Calcium Total Bilirubin AST ALT Alkaline Phosphatase Total Creatine Kinase 118 CK-MB (CK-2) 0.59 CK-MB (CK-2) Rel Index 0.5 L Troponin I < 0.012 < 0.012 NT-Pro-B Natriuret Pep Total Protein Albumin Globulin Albumin/Globulin Ratio Triglycerides Cholesterol LDL Cholesterol, Calc HDL Cholesterol Amylase Lipase 07/15/19 07/15/19 06:11 06:11 WBC RBC Hgb Hct MCV MCH MCHC RDW Plt Count Neut % (Auto) Lymph % (Auto) [place] % (Auto) Eos % (Auto) Baso % (Auto) Neut # (Auto) Lymph # (Auto) [place] # (Auto) Eos # (Auto) Baso # (Auto) RBC Morphology Poikilocytosis Anisocytosis Microcytosis Ovalocytes PT INR APTT D-Dimer Sodium 139 Potassium 4.3 Chloride 104 Carbon Dioxide 23 BUN 18 Creatinine 0.70 Estimated GFR > 60.0 BUN/Creatinine Ratio 25.7 H Glucose 161 H Hemoglobin A1c 6.8 H Calcium 10.1 Total Bilirubin AST ALT Alkaline Phosphatase Total Creatine Kinase CK-MB (CK-2) CK-MB (CK-2) Rel Index Troponin I NT-Pro-B Natriuret Pep Total Protein Albumin Globulin Albumin/Globulin Ratio Triglycerides 66 Cholesterol 171 LDL Cholesterol, Calc 123 H HDL Cholesterol 35 L Amylase Lipase Discharge Plan Discharge Plan Discharge Problem: Chest pain Patient Disposition: Home Discharge orders & Medications Prescriptions: New ibuprofen 400 mg tablet 400 mg PO TID Qty: 20 RF: 0 acetaminophen [Tylenol 8 Hour] 650 mg tablet extended release 650 mg PO Q8H PRN (Reason: pain) Qty: 30 RF: 0 Continued atorvastatin [Lipitor] 40 MG tablet 40 mg PO QPM Qty: 0 RF: 0 aspirin 81 MG tablet,delayed release (DR/EC) 81 mg PO QPM Qty: 0 RF: 0 metformin [Glucophage XR] 500 MG tablet extended release 24 hr 1,000 mg PO BID Qty: 0 RF: 0 OMEGA-3 FATTY ACIDS (FISH OIL) 500 mg PO DAILY Qty: 0 RF: 0 metoprolol succinate [Toprol XL] 50 MG tablet extended release 24 hr 50 mg PO QPM Qty: 0 RF: 0 losartan 50 mg Tablet 50 mg PO QPM RF: 0 Follow up/Referrals: Chaz Monique MD [Primary Care Provider] - Diet/Activity/Treatments Diet: Carb-consistent/Diabetic and Low-cholesterol Activity: as tolerated Discharge Data Primary Care Provider: Chaz Monique Attending Provider: Bridget Ocampo Admit Date/Time: 07/14/19 20:26 Quality VTE Deep Vein Thrombosis/Pulmonary Embolism Present on Admission: No
[2019-07-15 15:15] VITALS: BP 131/86; PULSE 107; RESP 18; TEMP 36.3; O2SAT 96
--- NOTE | 2019-07-15 15:20 | CM.DANOTE ---
DCP Assessment: EMR reviewed: Patient is a 49 yr old male who was admitted for Chest pain. PCP is Dr. Monique. Cm/RN met with patient at the bedside and explained role. patient currently lives at home with his parents in a single level home. Patient states he is independent with all ADLs and drives at baseline. Patient had a cardia stress test today and pending results might be D/C home today. I: Healthcare management. Plan: D/C home with family when medically stable. No identified d/c planning needs noted. Gena Rodgers RN Discharge Planning/Care Management Advanced directive, confirm from FAMILY Start: 07/14/19 21:42 Freq: Q24H Status: Active Protocol: Document 07/14/19 21:42 SL (Rec: 07/14/19 21:52 SL [id number]) Advance Directive, confirm on record Time 21:51 Person contacted no one Copy received No CM Discharge Assessment Start: 07/15/19 15:06 Freq: Status: Active Protocol: Document 07/15/19 15:06 HS (Rec: 07/15/19 15:20 [id number]) Discharge Planning Assessment Assigned Wellness Health Coach Gena Rodgers RN DPOA/Assigned Designee Name Nathalie Brown (mom) Contact Information [phone] Advance Directives? No: Sister knows patient's wishes Lexie Smith Advance Directives on File No History Provided By Patient Has Patient been admitted in last 30 No days? Prior Living Arrangements House Household Members family Type of transporation used prior to Drives self admit Comment Is patient alert and oriented? Yes Caregiver for Another NO Discharge Plan Home Referrals Initiated None needed Whiteboard Updated in Patient Room with Yes name and ext. # of Wellness Health Coach Review Status In Process Next Review Type Continued Stay Review
--- NOTE | 2019-07-15 15:46 | PC.NURSE ---
Discharge instructions reviewed w/ patient. Work note given to patient. IV removed, catheter intact, pt tolerated well. Pt states he will drive himself in private vehicle that he has left in the parking lot. Pt alert and oriented. Taken down in a wheelchair accompanied by hospital staff.
--- NOTE | 2019-07-16 02:40 | DI.NM.S_ITS ---
DATE OF SERVICE: 07/15/2019 PROCEDURE PERFORMED: Pharmacologic stress only myocardial perfusion imaging with gating to assess ejection fraction and regional wall motion. ORDERING PROVIDER: Dr. Ayala. INDICATIONS: The patient is a 49-year-old male with previous known coronary disease who now presents with atypical chest discomfort. PHARMACOLOGIC STRESS TESTING: Per protocol, 0.4 mg of regadenoson was infused, augmented by handgrip exercise. With this, he had mild dyspnea and minimal chest discomfort. His resting ECG shows sinus rhythm with normal ST segments. There are no significant ST-segment shifts with exercise. There were no arrhythmias. Per protocol, 25.0 mCi of technetium-99m Myoview was injected. The patient was imaged 15 minutes later using a gated SPECT acquisition protocol. Because the stress images were felt to be normal, rest images were felt not to be necessary. RAW DATA: 1. There is good myocardial tracer uptake within normal lung-heart ratio of 0.27. 2. Post-stress ejection fraction is estimated at 76% without any regional wall motion abnormality and specifically the inferior wall appears to have normal contractility. Left ventricular end-diastolic volume is borderline increased at 136 mL. 3. Myocardial perfusion imaging: Post-stress supine images show a fairly normal myocardial perfusion pattern although with a mild defect in the proximal to mid inferior wall, extending slightly to the inferolateral wall, but this defect completely resolves on the prone images, revealing a completely normal, homogeneous perfusion pattern. Given this, it was felt that resting images were not necessary. IMPRESSION: 1. Normal myocardial perfusion study. 2. Mild proximal to mid inferior perfusion defect that completely resolves on the prone images, consistent with diaphragmatic attenuation. The prone images reveal no evidence for any myocardial ischemia or previous myocardial infarction. 3. Normal left ventricular systolic function without any focal wall motion abnormality. Left ventricular end-diastolic volume is borderline increased at 136 mL. 4. Nonspecific chest discomfort and dyspnea with a regadenoson infusion, but no ECG changes of ischemia. Jasson Brown - PO/woody/flor doc#: [id number]/job#: [id number] dd: 07/15/2019 17:10:00 dt: 07/15/2019 18:36:00 DICTATING MD/COPIES TO: Lalito Santillan MD; Benjamin Cunha MD; Dr. Ayala COPIES MNE: JOLIE; ; Dr. Ayala
== END 2019-07-15 16:02 | disposition home or self-care (01) ==
LOC: ED 20:17 → AC 20:28
PROVIDERS: Emergency Medicine; Admitting Provider Nurse Practitioner Family; Emergency Provider Nurse Practitioner Family; PCP Family Medicine; Visit Provider Nurse Practitioner Family
DX: R07.9 Chest pain, unspecified (principal); R42 Dizziness and giddiness; R20.0 Anesthesia of skin; E11.9 Type 2 diabetes mellitus without complications; I10 Essential (primary) hypertension; G47.33 Obstructive sleep apnea (adult) (pediatric); E66.01 Morbid (severe) obesity due to excess calories; Z79.84 Long term (current) use of oral hypoglycemic drugs
CPT/HCPCS: 36415; 71045; 71260; 74176; 78451; 80048; 80053; 80061; 82150; 82550; 82553; 82962; 83036; 83690; 83880; 84484; 85025; 85379; 85610; 85730; 93005; 93017; 94660; 96372; 96374; 96375; 99285; G0378; A9502; J1650; J1885; J2405; J2785; J2930; J3010; Q9967

== ENCOUNTER 2019-09-25 16:05 | Emergency (ER) | payer OTHER, SELFPAY ==
[2019-07-14 21:25] VITALS: BMI 39.6
--- NOTE | 2019-09-25 16:14 | DI.RAD.S_ITS ---
PROCEDURE: XR CHEST 1V INDICATIONS: chest pain TECHNIQUE: One view of the chest was acquired. COMPARISON: [facility], CHEST 1 VIEW, 01/15/2017, 18:57. [facility], , CHEST 1 VIEW, 03/14/2017, 18:09. [facility], , XR CHEST 1V, 06/11/2019, 12:45. [facility], , XR CHEST 1V, 07/14/2019, 15:37. FINDINGS: Surgical changes and devices: None. Lungs and pleura: Lungs are clear. No pleural effusions or pneumothorax. Mediastinum: Mediastinal contours appear normal. Heart size is normal. Bones and chest wall: No suspicious bony lesions. Age-appropriate bony degenerative changes are seen. Overlying soft tissues appear unremarkable. IMPRESSION: Unremarkable portable chest for age. Dictated by: Vic Amaya M.D. on 09/25/2019 at 15:28 Approved by: Vic Amaya M.D. on 09/25/2019 at 15:28
[2019-09-25 16:15] VITALS: BMI 39.6
[2019-09-25 16:25] VITALS: BP 138/71; PULSE 77; RESP 16; O2SAT 99
--- NOTE | 2019-09-25 16:41 | ED.CHESTPAIN ---
HPI - Chest Pain General Chief Complaint: Chest Pain Stated Complaint: chest pain Time Seen by Provider: 09/25/19 16:20 Source: patient Mode of arrival: Ambulatory Limitations: no limitations History of Present Illness HPI narrative: 49-year-old male here for evaluation of 6 months of consistent, daily epigastric chest pain. He states that he has been evaluated in the past for this. Has seen Cardiology. He was told by Cardiology that this was not his heart. Has also seen his primary provider. Reports that he now feels a lump. He points to his epigastrium region. His pain is reproducible with palpation of this lump. Also hurts when he takes a deep breath. Has not tried anything for symptoms prior to arrival. Related Data Home Medications Medication Instructions Recorded Confirmed OMEGA-3 FATTY ACIDS (FISH OIL) 500 mg PO DAILY #0 05/09/16 07/14/19 aspirin 81 mg PO QPM #0 05/09/16 07/14/19 atorvastatin [Lipitor] 40 mg PO QPM #0 05/09/16 07/14/19 metformin [Glucophage XR] 1,000 mg PO BID #0 05/09/16 07/14/19 metoprolol succinate [Toprol XL] 50 mg PO QPM #0 05/08/17 07/14/19 losartan 50 mg PO QPM 06/11/19 07/14/19 Previous Rx's Medication Instructions Recorded acetaminophen [Tylenol 8 Hour] 650 mg PO Q8H PRN #30 tab 07/15/19 ibuprofen 400 mg PO TID #20 tab 07/15/19 Allergies Allergy/AdvReac Type Severity Reaction Status Date / Time morphine [MORPHINE] AdvReac Severe VOMITING Verified 06/11/19 12:47 Review of Systems Constitutional Constitutional: Denies fever(s) Cardiovascular Cardiovascular: Reports chest pain, Denies rapid heart rate, Denies irregular heart rhythm, Denies lightheadedness and Denies dyspnea Respiratory Respiratory: Denies chest congestion and Denies dyspnea Gastrointestinal Gastrointestinal: Denies abdominal pain, Denies diarrhea and Denies vomiting Integumentary/Breasts Skin/Breast: Denies lesions and Denies rash Neurologic Neurologic: Denies behavioral changes Psychiatric Psychiatric: Denies behavioral changes Hematologic/Lymphatic Hematologic/Lymphatic: Denies easy bleeding and Denies easy bruising Patient History Medical History Carpal tunnel syndrome (Acute) Diabetes (Acute) History of non-ST elevation myocardial infarction (NSTEMI) (Acute) HTN (hypertension) (Acute) Morbid obesity (Acute) JESSICA (obstructive sleep apnea) (Acute) Surgical History (Updated 07/15/19 @ 01:57 by CHELITA Lovett) Status post carpal tunnel release (Acute) Family History (Updated 07/15/19 @ 01:58 by CHELITA Lovett) Father CAD (coronary artery disease) History of coronary artery bypass graft x 2 Mother Cancer Social History household members: family Smoking Status: Never smoker alcohol intake: never Smoking Status: Never smoker alcohol intake frequency: 0-2 drinks per day Substance Use Type: does not use Exam Initial Vital Signs Initial Vital Signs: Vital Signs Pulse Rate 77 09/25/19 16:25 Respiratory Rate 16 09/25/19 16:25 Blood Pressure 138/71 09/25/19 16:25 Pulse Oximetry 99 09/25/19 16:25 Const General: cooperative, comfortable and well developed Limitations: mental status not altered HENMT Head: normal to inspection and normocephalic Chest Chest: tenderness (Over xiphoid) Resp Effort & Inspection: normal respiratory effort Auscultation: clear to auscultation bilaterally Cardio Rate: regular rate Rhythm: regular rhythm Skin Lesions: no lesions Rashes: no rashes Neuro General: patient alert and patient awake Cognition: normal cognition Speech: speech normal Extrem General: normal to inspection and capillary refill normal Psych Appearance: grossly normal and well kempt Scores GCS Abby coma scale eye opening: Spontaneous [place] coma scale verbal response: Orientated Abby coma scale motor response: Obey commands [place] coma scale total score: 15 Course Orders Ordered: ED Orders 09/25/19 16:14 XR chest 1V Stat Comprehensive Metabolic Panel Stat Lipase Stat Troponin & CK Cardiac Panel Stat EKG-12 Lead Stat Discontinued Medications Ketorolac Tromethamine (Toradol) 30 mg IM NOW ONE Stop: 09/25/19 17:03 Last Admin: 09/25/19 17:08 Dose: 30 mg Documented by: NATHAN Vital Signs Vital signs: Vital Signs - 8 hr 09/25/19 16:25 09/25/19 16:44 06/17/20 17:45 Temperature 98.1 F 98.1 F Pulse Rate 77 76 Respiratory Rate 16 20 Blood Pressure 146/66 H Blood Pressure [Left Arm] 138/71 Pulse Oximetry 99 98 MDM - Chest Pain Imaging Data Chest x-ray: Radiologist's Impression: [address] [address] XRay Report Signed Patient: Jasson Brown#: [id number] : 1970Acct:[id number] Age/Sex: 49 / MDate of Service: 09/25/19 Loc: ED Accession Number: [id number] Procedure: XR chest 1V Ordering Provider: Robinson Meadows D.O. PROCEDURE: XR CHEST 1V INDICATIONS: chest pain TECHNIQUE: One view of the chest was acquired. COMPARISON: [facility], CR, CHEST 1 VIEW, 01/15/2017, 18:57. [facility], CR, CHEST 1 VIEW, 03/14/2017, 18:09. [facility], CR, XR CHEST 1V, 06/11/2019, 12:45. [facility], CR, XR CHEST 1V, 07/14/2019, 15:37. FINDINGS: Surgical changes and devices: None. Lungs and pleura: Lungs are clear. No pleural effusions or pneumothorax. Mediastinum: Mediastinal contours appear normal. Heart size is normal. Bones and chest wall: No suspicious bony lesions. Age-appropriate bony degenerative changes are seen. Overlying soft tissues appear unremarkable. IMPRESSION: Unremarkable portable chest for age. Dictated by: Vic Amaya M.D. on 09/25/2019 at 15:28 Approved by: Vic Amaya M.D. on 09/25/2019 at 15:28 ECG Data Attestation: I personally reviewed and interpreted this ECG as follows: Prior ECG tracings: not available for review Interpretation: Sinus rhythm Ventricular rate is 78 Normal axis Normal QRS Normal QTC No ST T wave changes MDM Narrative Medical decision making narrative: Consistent symptoms for 6 months. Reproducible with palpation of the xiphoid. Chest x-ray is unremarkable. EKG is unremarkable. Has seen Cardiology for this discomfort. Low suspicion for ACS. Low suspicion for PE. Suspect musculoskeletal. Will have him follow-up with his primary provider. Feel patient can be safely discharged home without further workup in the ER. He expressed understanding and agreement. Discharge Plan Departure Patient Disposition: Home Clinical Impression: Xiphoid pain, Anterior chest wall pain Discharge Date/Time: 09/25/19 17:48 Instructions: DI for Costochondritis Activity Restrictions/Additional Instructions: Recommend that you contact your primary provider for a follow-up. Return to the emergency department for any new symptoms. Prescriptions: No Action atorvastatin [Lipitor] 40 MG tablet 40 mg PO QPM Qty: 0 RF: 0 aspirin 81 MG tablet,delayed release (DR/EC) 81 mg PO QPM Qty: 0 RF: 0 metformin [Glucophage XR] 500 MG tablet extended release 24 hr 1,000 mg PO BID Qty: 0 RF: 0 OMEGA-3 FATTY ACIDS (FISH OIL) 500 mg PO DAILY Qty: 0 RF: 0 metoprolol succinate [Toprol XL] 50 MG tablet extended release 24 hr 50 mg PO QPM Qty: 0 RF: 0 acetaminophen [Tylenol 8 Hour] 650 mg tablet extended release 650 mg PO Q8H PRN (Reason: pain) Qty: 30 RF: 0 ibuprofen 400 mg tablet 400 mg PO TID Qty: 20 RF: 0 losartan 50 mg Tablet 50 mg PO QPM RF: 0 Referrals: Chaz Monique MD [Primary Care Provider] - Stand Alone Forms: Work Release Note
[2019-09-25 16:44] VITALS: TEMP 36.7
[2019-09-25] MEDS: KETOROLAC 60 MG/2 ML VIAL 30 MG IM (17:08)
[2019-09-25 17:45] VITALS: BP 146/66; PULSE 76; RESP 20; TEMP 36.7; O2SAT 98
== END 2019-09-25 17:48 | disposition home or self-care (01) ==
PROVIDERS: Emergency Provider Emergency Medicine; PCP Family Medicine
DX: R07.89 Other chest pain (principal)
CPT/HCPCS: 71045; 93005; 96372; 99284; J1885

== ENCOUNTER 2020-03-29 14:36 | Emergency (ER) | payer OTHER, SELFPAY ==
[2019-07-14 21:25] VITALS: BMI 39.6
[2020-03-29] VITALS (15 sets, daily range): BP systolic 132–175; BP diastolic 73–100; PULSE 51–75; RESP 16–26; TEMP 36.8; O2SAT 97–100; BMI 31.0
--- NOTE | 2020-03-29 14:59 | DI.CT.S_ITS ---
PROCEDURE: CT HEAD/BRAIN WO CON INDICATIONS: posterior headache, dizziness TECHNIQUE: Noncontrast 4.5 mm thick angled axial sections acquired from the foramen magnum to the vertex, with coronal and sagittal reformats. For radiation dose reduction, the following was used: automated exposure control, adjustment of mA and/or kV according to patient size. COMPARISON: None. FINDINGS: Image quality: Excellent. CSF spaces: Basal cisterns are patent. No extra-axial fluid collections. Ventricles are normal in size and shape. Brain: No midline shift. No intracranial masses or hemorrhage. Estrada-white matter interface is normal. Skull and face: Calvarium and visualized facial bones are intact, without suspicious lesions. Sinuses: Mild mucosal thickening in the maxillary, ethmoid, sphenoid sinuses. The mastoid air cells are clear. IMPRESSION: No acute intracranial abnormality. Mild paranasal sinus disease. Dictated by: Brian Kurtz M.D. on 03/29/2020 at 14:59 Approved by: Brian Kurtz M.D. on 03/29/2020 at 15:04
--- NOTE | 2020-03-29 15:08 | ED_ITS ---
HPI - Headache <CHELITA Reaves - Last Filed: 03/29/20 18:28> General Chief Complaint: Dizziness Stated Complaint: dizziness, back of head hurts, lump in chest hurts Time Seen by Provider: 03/29/20 14:43 Source: patient Mode of arrival: Ambulatory Limitations: no limitations History of Present Illness HPI Narrative: This is a 49-year-old male, nonsmoker, who has past medical history significant for hypertension, hyperlipidemia, diabetes, JESSICA, chest wall pain and is currently waiting for surgery evaluation presents to ED with posterior headache, lightheadedness and dizziness which started before midnight last night. Patient denies vision change, ataxia, balance difficulty, speech difficulty, swallowing difficulty, paralysis, facial droops, and other stroke related symptoms. Patient denies chest pain, dyspnea, or vomiting but reports slightly nauseous. Patient denies chills, fever, unusual rash, nuchal rigidity, recent illness, or known exposure to Covid. Patient drove himself to here. PCP JJ [place]. Related Data Home Medications Medication Instructions Recorded Confirmed OMEGA-3 FATTY ACIDS (FISH OIL) 500 mg PO DAILY #0 05/09/16 07/14/19 aspirin 81 mg PO QPM #0 05/09/16 07/14/19 atorvastatin [Lipitor] 40 mg PO QPM #0 05/09/16 07/14/19 metformin [Glucophage XR] 1,000 mg PO BID #0 05/09/16 07/14/19 metoprolol succinate [Toprol XL] 50 mg PO QPM #0 05/08/17 07/14/19 losartan 50 mg PO QPM 06/11/19 07/14/19 Previous Rx's Medication Instructions Recorded acetaminophen [Tylenol 8 Hour] 650 mg PO Q8H PRN #30 tab 07/15/19 ibuprofen 400 mg PO TID #20 tab 07/15/19 meclizine 25 mg PO BID-TID PRN #10 tab 03/29/20 ondansetron 4 mg PO Q8H PRN #7 tab 03/29/20 Allergies Allergy/AdvReac Type Severity Reaction Status Date / Time morphine [MORPHINE] AdvReac Severe VOMITING Verified 03/29/20 14:58 Review of Systems <CHELITA Reaves Last Filed: 03/29/20 18:28> Review of Systems Narrative: General: Denies fever, chills, fatigue, malaise, sweats. HEENT: Denies sinus pain, ear pain, sore throat, difficulty swallowing, dizziness. Respiratory: Denies dyspnea, cough, wheezing, hemoptysis, sputum. Cardiovascular: Denies chest pain, palpitations, orthopnea, edema. Gastrointestinal: Denies nausea, vomiting, abdominal pain, diarrhea, constipation, melena. : Denies dysuria, frequency, incontinence, hematuria, urinary retention. Musculoskeletal: Denies weakness, joint pain or bony pain. Skin: Denies rash, skin lesions, or other. Neurologic: See HPI Psychiatric: No concerning psychosocial issues. 12-point review of systems is negative except for those stated above. Patient History <CHELITA Reaves - Last Filed: 03/29/20 18:28> Medical History (Updated 03/29/20 @ 18:09 by CHELITA Reaves) Carpal tunnel syndrome Diabetes History of non-ST elevation myocardial infarction (NSTEMI) HTN (hypertension) Morbid obesity JESSICA (obstructive sleep apnea) Surgical History Status post carpal tunnel release Family History Father CAD (coronary artery disease) History of coronary artery bypass graft x 2 Mother Cancer Social History household members: family Smoking Status: Never smoker alcohol intake: never Smoking Status: Never smoker alcohol intake frequency: 0-2 drinks per day Substance Use Type: does not use Exam <CHELITA Reaves - Last Filed: 03/29/20 18:28> Narrative Exam Narrative: GEN: Alert, oriented x 3, well appearing and nourished, and in no acute distress. Head: Normal cephalic, atraumatic. No scalp or temporal tenderness, palpable mass or rash. EYES: Pupils are equal, round, and reactive to light and accommodation. Extraocular muscles are intact bilaterally. There is no subconjunctival hemorrhage, exudate and sclera non-icteric. ENT: Bilateral auditory canals and tympanic membranes clear. Hearing grossly intact. Nose without bleeding, purulent discharge, septal hematoma or deviation. Turbinate without erythema or swelling. Facial sinuses nontender to palpate. Mucous membrane moist, no mucosal lesion. Throat without erythema, tonsillar hypertrophy or exudate. Uvula in midline, airway patent. Neck: Trachea in midline. No JVD, non-tender without lymphadenopathy. No masses or thyroid megaly. Supple, non-tender and no meningeal signs. CARDIAC: Normal regular rate and rhythm without murmurs, gallops, or rubs. No chest wall tenderness. No peripheral edema, cyanosis or pallor. Capillary r efill is less than 2 seconds. No carotid bruits. RESPIRATORY: Lungs are cleat to auscultate bilaterally. No cough, wheezes, rales, or rhonchi. No stridor, respiratory distress, increase work of allan athing, or accessary muscle used. ABD: Abdomen soft, nontender and non-distended. No guarding or rebound tenderness to palpate. Bowel sounds are normal in all 4 quadrants. There is no palpable masses or organomegaly. EXT: Full painless ROM of all extremities with no loss of sensation, strength, effusion or edema. SKIN: Warm, dry, normal color for patient. No erythema, lesions or rash. BACK: Nontender without deformity or crepitance. No flank tenderness. NEUROLOGICAL: Alert and oriented to place, time and person. No facial droops, dysphasia. CN II-XII intact. Strength and sensation symmetric and intact throughout. Cerebellar testing normal. PSYCHIATRIC: Good judgement and reason, without hallucinations, abnormal affect or abnormal behaviors during the examination. Patient is not suicidal. Initial Vital Signs Initial Vital Signs: Vital Signs Pulse Rate 75 03/29/20 14:44 Respiratory Rate 22 03/29/20 14:44 Pulse Oximetry 100 03/29/20 14:44 <Thais Aviles DO - Last Filed: 03/31/20 07:12> Initial Vital Signs Initial Vital Signs: Vital Signs Pulse Rate 75 03/29/20 14:44 Respiratory Rate 22 03/29/20 14:44 Pulse Oximetry 100 03/29/20 14:44 Scores <Matti Bernal-CHELITA Hughes - Last Filed: 03/29/20 18:28> GCS Abby coma scale eye opening: Spontaneous [place] coma scale verbal response: Orientated [place] coma scale motor response: Obey commands Abby coma scale total score: 15 NIH Stroke Scale Level of Conciousness: Alert, keenly responsive Ask month/age: Answers both questions correctly. Open/close eyes, close hand: Performs both tasks correctly Best gaze horizontal: Normal Visual cook: No visual loss Facial palsy: Normal symetrical movement Left arm drift: No drift for full 10 sec Right arm drift: No drift for full 10 sec Left leg drift: No drift for full 5 sec Right leg drift: No drift for full 5 sec Limb ataxia: Absent Sensory on face/arms/legs: Normal, no sensory loss Best language: No aphasia, normal Dysarthria: Normal Extinction or inattention: No abnormality Total NIH Stroke scale score: 0 Course <Matti Gabe-CHELITA Hughes - Last Filed: 03/29/20 18:28> Orders Ordered: Discontinued Medications Acetaminophen (Acetaminophen 325 Mg Tablet) 650 mg PO NOW ONE Stop: 03/29/20 15:40 Last Admin: 03/29/20 16:26 Dose: 650 mg Documented by: PHILIPP Hydromorphone HCl (Hydromorphone 0.5 Mg Inj) 0.5 mg IV NOW ONE Stop: 03/29/20 17:27 Last Admin: 03/29/20 17:36 Dose: 0.5 mg Documented by: PHILIPP Sodium Chloride (Normal Saline 0.9%) 500 mls @ 1,000 mls/hr IV BOLUS ONE Stop: 03/29/20 16:08 Last Infusion: 03/29/20 17:19 Dose: 0 mls/hr Documented by: Admin: 03/29/20 16:27 Dose: 1,000 mls/hr Documented by: PHILIPP Ketorolac Tromethamine (Ketorolac 60 Mg/2 Ml Vial) 15 mg IV NOW ONE Stop: 03/29/20 16:13 Last Admin: 03/29/20 16:26 Dose: 15 mg Documented by: PHILIPP Meclizine HCl (Meclizine Hcl 12.5 Mg Tablet) 25 mg PO NOW ONE Stop: 03/29/20 16:20 Last Admin: 03/29/20 16:26 Dose: 25 mg Documented by: PHILIPP Ondansetron HCl (Ondansetron 4 Mg/2 Ml Inj) 4 mg IV NOW ONE Stop: 03/29/20 15:01 Last Admin: 03/29/20 16:26 Dose: 4 mg Documented by: PHILIPP Vital Signs Vital signs: Vital Signs - 8 hr 03/29/20 14:44 03/29/20 14:46 03/29/20 15:00 Temperature 98.2 F Pulse Rate 75 73 70 Pulse Rate [Orthostatic Lying] Pulse Rate [Orthostatic Sitting] Pulse Rate [Orthostatic Standing] Respiratory Rate 22 16 22 Blood Pressure 160/82 H Blood Pressure [Orthostatic Lying] Blood Pressure [Orthostatic Sitting] Blood Pressure [Orthostatic Standing] Pulse Oximetry 100 99 98 03/29/20 15:20 03/29/20 15:21 03/29/20 15:23 Temperature Pulse Rate 66 71 72 Pulse Rate [Orthostatic Lying] Pulse Rate [Orthostatic Sitting] Pulse Rate [Orthostatic Standing] Respiratory Rate 18 20 23 Blood Pressure 139/84 132/77 151/75 H Blood Pressure [Orthostatic Lying] Blood Pressure [Orthostatic Sitting] Blood Pressure [Orthostatic Standing] Pulse Oximetry 98 98 98 03/29/20 15:24 03/29/20 15:30 03/29/20 16:00 Temperature Pulse Rate 67 63 Pulse Rate [Orthostatic Lying] 71 Pulse Rate [Orthostatic Sitting] 68 Pulse Rate [Orthostatic Standing] 65 Respiratory Rate 22 26 H Blood Pressure 146/73 H 166/87 H Blood Pressure [Orthostatic Lying] 151/75 H Blood Pressure [Orthostatic Sitting] 139/84 Blood Pressure [Orthostatic Standing] 132/77 Pulse Oximetry 98 98 03/29/20 16:30 03/29/20 17:00 03/29/20 17:01 Temperature Pulse Rate 60 54 L 61 Pulse Rate [Orthostatic Lying] Pulse Rate [Orthostatic Sitting] Pulse Rate [Orthostatic Standing] Respiratory Rate 24 20 21 Blood Pressure 175/84 H 152/100 H Blood Pressure [Orthostatic Lying] Blood Pressure [Orthostatic Sitting] Blood Pressure [Orthostatic Standing] Pulse Oximetry 98 97 97 03/29/20 17:30 Temperature Pulse Rate 51 L Pulse Rate [Orthostatic Lying] Pulse Rate [Orthostatic Sitting] Pulse Rate [Orthostatic Standing] Respiratory Rate 16 Blood Pressure 157/81 H Blood Pressure [Orthostatic Lying] Blood Pressure [Orthostatic Sitting] Blood Pressure [Orthostatic Standing] Pulse Oximetry 98 <Thais Aviles DO - Last Filed: 03/31/20 07:12> Orders Ordered: Discontinued Medications Acetaminophen (Acetaminophen 325 Mg Tablet) 650 mg PO NOW ONE Stop: 03/29/20 15:40 Last Admin: 03/29/20 16:26 Dose: 650 mg Documented by: PHILIPP Hydromorphone HCl (Hydromorphone 0.5 Mg Inj) 0.5 mg IV NOW ONE Stop: 03/29/20 17:27 Last Admin: 03/29/20 17:36 Dose: 0.5 mg Documented by: PHILIPP Sodium Chloride (Normal Saline 0.9%) 500 mls @ 1,000 mls/hr IV BOLUS ONE Stop: 03/29/20 16:08 Last Infusion: 03/29/20 17:19 Dose: 0 mls/hr Documented by: Admin: 03/29/20 16:27 Dose: 1,000 mls/hr Documented by: PHILIPP Ketorolac Tromethamine (Ketorolac 60 Mg/2 Ml Vial) 15 mg IV NOW ONE Stop: 03/29/20 16:13 Last Admin: 03/29/20 16:26 Dose: 15 mg Documented by: PHILIPP Meclizine HCl (Meclizine Hcl 12.5 Mg Tablet) 25 mg PO NOW ONE Stop: 03/29/20 16:20 Last Admin: 03/29/20 16:26 Dose: 25 mg Documented by: PHILIPP Ondansetron HCl (Ondansetron 4 Mg/2 Ml Inj) 4 mg IV NOW ONE Stop: 03/29/20 15:01 Last Admin: 03/29/20 16:26 Dose: 4 mg Documented by: PHILIPP Vital Signs Vital signs: Vital Signs - 8 hr 03/29/20 14:44 03/29/20 14:46 03/29/20 15:00 Temperature 98.2 F Pulse Rate 75 73 70 Pulse Rate [Orthostatic Lying] Pulse Rate [Orthostatic Sitting] Pulse Rate [Orthostatic Standing] Respiratory Rate 22 16 22 Blood Pressure 160/82 H Blood Pressure [Orthostatic Lying] Blood Pressure [Orthostatic Sitting] Blood Pressure [Orthostatic Standing] Pulse Oximetry 100 99 98 03/29/20 15:20 03/29/20 15:21 03/29/20 15:23 Temperature Pulse Rate 66 71 72 Pulse Rate [Orthostatic Lying] Pulse Rate [Orthostatic Sitting] Pulse Rate [Orthostatic Standing] Respiratory Rate 18 20 23 Blood Pressure 139/84 132/77 151/75 H Blood Pressure [Orthostatic Lying] Blood Pressure [Orthostatic Sitting] Blood Pressure [Orthostatic Standing] Pulse Oximetry 98 98 98 03/29/20 15:24 03/29/20 15:30 03/29/20 16:00 Temperature Pulse Rate 67 63 Pulse Rate [Orthostatic Lying] 71 Pulse Rate [Orthostatic Sitting] 68 Pulse Rate [Orthostatic Standing] 65 Respiratory Rate 22 26 H Blood Pressure 146/73 H 166/87 H Blood Pressure [Orthostatic Lying] 151/75 H Blood Pressure [Orthostatic Sitting] 139/84 Blood Pressure [Orthostatic Standing] 132/77 Pulse Oximetry 98 98 03/29/20 16:30 03/29/20 17:00 03/29/20 17:01 Temperature Pulse Rate 60 54 L 61 Pulse Rate [Orthostatic Lying] Pulse Rate [Orthostatic Sitting] Pulse Rate [Orthostatic Standing] Respiratory Rate 24 20 21 Blood Pressure 175/84 H 152/100 H Blood Pressure [Orthostatic Lying] Blood Pressure [Orthostatic Sitting] Blood Pressure [Orthostatic Standing] Pulse Oximetry 98 97 97 03/29/20 17:30 Temperature Pulse Rate 51 L Pulse Rate [Orthostatic Lying] Pulse Rate [Orthostatic Sitting] Pulse Rate [Orthostatic Standing] Respiratory Rate 16 Blood Pressure 157/81 H Blood Pressure [Orthostatic Lying] Blood Pressure [Orthostatic Sitting] Blood Pressure [Orthostatic Standing] Pulse Oximetry 98 MDM - Headache <Matti Lorna [facility] - Last Filed: 03/29/20 18:28> Differential Diagnosis Differential diagnosis: Likely headache, meningitis and other (CVA) Medical Records Attestation: I reviewed the patient's medical records. Lab Data Attestation: I reviewed the patient's lab results. Result diagrams: 03/29/20 14:51 03/29/20 14:51 Labs: Lab Results 03/29/20 03/29/20 03/29/20 Range/Units 14:51 14:51 14:51 WBC 8.1 (4.5-11.0) X10^3/uL RBC 6.32 H (4.5-5.9) X10^6/uL Hgb 13.2 L (13.5-17.5) g/dL Hct 41.9 (41-53) % MCV 66.3 L (80-100) fL MCH 20.9 L (26-34) PG MCHC 31.5 (30-36) % RDW 17.2 H (11.6-14.8) % Plt Count 273 (150-400) X10^3/uL Neut % (Auto) 58.0 (50-75) % Lymph % (Auto) 28.7 (25-40) % [place] % (Auto) 7.8 (3-14) % Eos % (Auto) 4.7 H (2-4) % Baso % (Auto) 0.8 (0-2) % Neut # (Auto) 4700 (3843-2140) /uL Lymph # (Auto) 2300 (6356-4861) /uL [place] # (Auto) 600 (0-900) /uL Eos # (Auto) 400 (0-450) /uL Baso # (Auto) 100 (0-100) /uL RBC Morphology Not Reportable Hypochromasia 1+ H Microcytosis 2+ H PT 11.3 (10.1-12.7) SECONDS INR 1.0 (0.9-1.3) APTT 36 (26.4-36.2) SECONDS Sodium 140 (137-145) mmol/L Potassium 4.4 (3.4-5.1) mmol/L Chloride 107 (98-107) mmol/L Carbon Dioxide 27 (22-32) mmol/L BUN 13 (9-20) mg/dL Creatinine 0.61 L (0.66-1.25) mg/dL Estimated GFR > 60.0 (>60) mL/min BUN/Creatinine Ratio 21.3 (6-22) Glucose 119 H (70-100) mg/dL Calcium 9.3 (8.4-10.2) mg/dL Total Bilirubin 0.5 (0.2-1.3) mg/dL AST 40 (17-59) IU/L ALT 41 (<50) IU/L Alkaline Phosphatase 109 (38-126) U/L Total Creatine Kinase (55-170) U/L CK-MB (CK-2) (<2.37) ng/mL CK-MB (CK-2) Rel Index (1.5-5.0) % Troponin I (0.01-0.034) ng/mL Total Protein 8.3 H (6.3-8.2) g/dL Albumin 4.4 (3.5-5.0) g/dL Globulin 3.9 (1.7-4.1) g/dL Albumin/Globulin Ratio 1.1 (1.0-2.8) 12/20/20 Range/Units 14:51 WBC (4.5-11.0) X10^3/uL RBC (4.5-5.9) X10^6/uL Hgb (13.5-17.5) g/dL Hct (41-53) % MCV (80-100) fL MCH (26-34) PG MCHC (30-36) % RDW (11.6-14.8) % Plt Count (150-400) X10^3/uL Neut % (Auto) (50-75) % Lymph % (Auto) (25-40) % [place] % (Auto) (3-14) % Eos % (Auto) (2-4) % Baso % (Auto) (0-2) % Neut # (Auto) (9480-7113) /uL Lymph # (Auto) (8028-4229) /uL [place] # (Auto) (0-900) /uL Eos # (Auto) (0-450) /uL Baso # (Auto) (0-100) /uL RBC Morphology Hypochromasia Microcytosis PT (10.1-12.7) SECONDS INR (0.9-1.3) APTT (26.4-36.2) SECONDS Sodium (137-145) mmol/L Potassium (3.4-5.1) mmol/L Chloride (98-107) mmol/L Carbon Dioxide (22-32) mmol/L BUN (9-20) mg/dL Creatinine (0.66-1.25) mg/dL Estimated GFR (>60) mL/min BUN/Creatinine Ratio (6-22) Glucose (70-100) mg/dL Calcium (8.4-10.2) mg/dL Total Bilirubin (0.2-1.3) mg/dL AST (17-59) IU/L ALT (<50) IU/L Alkaline Phosphatase (38-126) U/L Total Creatine Kinase 387 H (55-170) U/L CK-MB (CK-2) 0.64 (<2.37) ng/mL CK-MB (CK-2) Rel Index 0.2 L (1.5-5.0) % Troponin I < 0.012 (0.01-0.034) ng/mL Total Protein (6.3-8.2) g/dL Albumin (3.5-5.0) g/dL Globulin (1.7-4.1) g/dL Albumin/Globulin Ratio (1.0-2.8) Imaging Data CT scan - head: Radiologist's Impression: [address] [id number] Scan ReportSigned Patient: Jasson Brown#: [id number]: 1970Acct:[id number]/Sex: 49 / MDate of Service: 03/29/20Loc: EDAccession Number: [id number] Procedure: CT head/brain wo con Ordering Provider: Matti Rothman PROCEDURE: CT HEAD/BRAIN WO CON INDICATIONS: posterior headache, dizziness TECHNIQUE: Noncontrast 4.5 mm thick angled axial sections acquired from the foramen magnum to the vertex, with coronal and sagittal reformats. For radiation dose reduction, the following was used: automated exposure control, adjustment of mA and/or kV according to patient size. COMPARISON: None. FINDINGS: Image quality: Excellent. CSF spaces: Basal cisterns are patent. No extra-axial fluid collections. Ventricles are normal in size and shape. Brain: No midline shift. No intracranial masses or hemorrhage. Estrada-white matter interface is normal. Skull and face: Calvarium and visualized facial bones are intact, without suspicious lesions. Sinuses: Mild mucosal thickening in the maxillary, ethmoid, sphenoid sinuses. The mastoid air cells are clear. IMPRESSION: No acute intracranial abnormality. Mild paranasal sinus disease. Dictated by: Brian Kurtz M.D. on 03/29/2020 at 14:59 Approved by: Brian Kurtz M.D. on 03/29/2020 at 15:04 ECG Data Attestation: I personally reviewed and interpreted this ECG as follows: Prior ECG tracings: available for review Interpretation: Sinus bradycardia rate at 55. Left dominant axis. CA interval 160, QRS duration 82, QT/QTC 396/[address] changes. Previous EKG tracings, normal sinus rhythm MDM Narrative Medical decision making narrative: This is a 49-year-old male who presents to ED with chief complain of posterior headache and non vertigo-like dizziness which started before midnight last night. Neurological exam was normal with a NIHSS score 0. Patient did not have ataxia. BEFAST exam normal. Patient also has ongoing anterior chest wall pain for 1.5 year and has a preop appointment in 3 days and reports pain which has not been changed. EKG was normal. Cardiac enzymes were normal. Head CT without acute findings but shows mild paranasal sinus disease. Labs are unremarkable. Labs are assuring. Patient have some form of anemia. Compared to previous lab tests and patient always have slightly elevated RBC, very mildly low in hemoglobin with slightly low in MCV, MCH, elevated RDW and microscopic test shows hypochromasia and microcystosis. No further imaging test done on brain without significant neuro findings. Orthostatic vital signs obtained without obvious positive findings. Patient was medicated with Zofran, Toradol, Tylenol, Meclizine with improved headache, nausea, and dizziness. Patient complaining of 9/10 chest wall pain which had not improved even after a small dose of Dilaudid. Given this has been going on 1.5 year with normal cardiac enzymes and EKG. Patient advised follow- up with surgery appointment in 3 days and it is not likely from cardiac in origin. Patient discharged to home with do tabs of meclizine and Zofran for dizziness and nausea. Advised to use [id number] Tylenol Motrin as needed for pain. Return precautions were discussed with patient and spouse and they both verbalized understanding in agreement treatment plan. <Thais Aviles, DO - Last Filed: 03/31/20 07:12> Lab Data Labs: Lab Results 03/29/20 03/29/20 03/29/20 Range/Units 14:51 14:51 14:51 WBC 8.1 (4.5-11.0) X10^3/uL RBC 6.32 H (4.5-5.9) X10^6/uL Hgb 13.2 L (13.5-17.5) g/dL Hct 41.9 (41-53) % MCV 66.3 L (80-100) fL MCH 20.9 L (26-34) PG MCHC 31.5 (30-36) % RDW 17.2 H (11.6-14.8) % Plt Count 273 (150-400) X10^3/uL Neut % (Auto) 58.0 (50-75) % Lymph % (Auto) 28.7 (25-40) % [place] % (Auto) 7.8 (3-14) % Eos % (Auto) 4.7 H (2-4) % Baso % (Auto) 0.8 (0-2) % Neut # (Auto) 4700 (3642-9645) /uL Lymph # (Auto) 2300 (3011-4611) /uL [place] # (Auto) 600 (0-900) /uL Eos # (Auto) 400 (0-450) /uL Baso # (Auto) 100 (0-100) /uL RBC Morphology Not Reportable Hypochromasia 1+ H Microcytosis 2+ H PT 11.3 (10.1-12.7) SECONDS INR 1.0 (0.9-1.3) APTT 36 (26.4-36.2) SECONDS Sodium 140 (137-145) mmol/L Potassium 4.4 (3.4-5.1) mmol/L Chloride 107 (98-107) mmol/L Carbon Dioxide 27 (22-32) mmol/L BUN 13 (9-20) mg/dL Creatinine 0.61 L (0.66-1.25) mg/dL Estimated GFR > 60.0 (>60) mL/min BUN/Creatinine Ratio 21.3 (6-22) Glucose 119 H (70-100) mg/dL Calcium 9.3 (8.4-10.2) mg/dL Total Bilirubin 0.5 (0.2-1.3) mg/dL AST 40 (17-59) IU/L ALT 41 (<50) IU/L Alkaline Phosphatase 109 (38-126) U/L Total Creatine Kinase (55-170) U/L CK-MB (CK-2) (<2.37) ng/mL CK-MB (CK-2) Rel Index (1.5-5.0) % Troponin I (0.01-0.034) ng/mL Total Protein 8.3 H (6.3-8.2) g/dL Albumin 4.4 (3.5-5.0) g/dL Globulin 3.9 (1.7-4.1) g/dL Albumin/Globulin Ratio 1.1 (1.0-2.8) 12/20/20 Range/Units 14:51 WBC (4.5-11.0) X10^3/uL RBC (4.5-5.9) X10^6/uL Hgb (13.5-17.5) g/dL Hct (41-53) % MCV (80-100) fL MCH (26-34) PG MCHC (30-36) % RDW (11.6-14.8) % Plt Count (150-400) X10^3/uL Neut % (Auto) (50-75) % Lymph % (Auto) (25-40) % [place] % (Auto) (3-14) % Eos % (Auto) (2-4) % Baso % (Auto) (0-2) % Neut # (Auto) (3593-0295) /uL Lymph # (Auto) (1592-0216) /uL [place] # (Auto) (0-900) /uL Eos # (Auto) (0-450) /uL Baso # (Auto) (0-100) /uL RBC Morphology Hypochromasia Microcytosis PT (10.1-12.7) SECONDS INR (0.9-1.3) APTT (26.4-36.2) SECONDS Sodium (137-145) mmol/L Potassium (3.4-5.1) mmol/L Chloride (98-107) mmol/L Carbon Dioxide (22-32) mmol/L BUN (9-20) mg/dL Creatinine (0.66-1.25) mg/dL Estimated GFR (>60) mL/min BUN/Creatinine Ratio (6-22) Glucose (70-100) mg/dL Calcium (8.4-10.2) mg/dL Total Bilirubin (0.2-1.3) mg/dL AST (17-59) IU/L ALT (<50) IU/L Alkaline Phosphatase (38-126) U/L Total Creatine Kinase 387 H (55-170) U/L CK-MB (CK-2) 0.64 (<2.37) ng/mL CK-MB (CK-2) Rel Index 0.2 L (1.5-5.0) % Troponin I < 0.012 (0.01-0.034) ng/mL Total Protein (6.3-8.2) g/dL Albumin (3.5-5.0) g/dL Globulin (1.7-4.1) g/dL Albumin/Globulin Ratio (1.0-2.8) Discharge Plan Departure Patient Disposition: Home Clinical Impression: Dizziness Headache Qualifiers: Headache type: unspecified Headache chronicity pattern: unspecified pattern Intractability: not intractable Qualified Code(s): R51.9 - Headache, unspecified Instructions: DI for Headache, DI for Dizziness-Nonvertigo Activity Restrictions/Additional Instructions: You have been diagnosed with [posterior headache, dizziness and chest wall pain. Cardiac enzymes were negative. EKG was normal sinus rhythm. Head CT without acute findings such as mass or bleed shows mild para nasal sinus disease. You were treated with IV Toradol, Zofran, Meclizine and Dilaudid with good improvement in headache and dizziness]. What to do: *Take your medications as directed. Please take [id number] Tylenol and or Motrin as needed for headache. Please take Zofran as needed for nausea. Use meclizine as needed for dizziness. Meclizine can cause drowsiness so please take precautions not driving, drinking alcohol, or operating heavy equipments. These to medication have been transmitted to [facility] in [place]. *Follow up with your primary care provider in 2-3 days, call for an appointment. Let them know you were seen in the ED and that we asked you to be seen in follow up. *Return to ED if you have any new, worsening, or concerning symptoms, such as [different or worsening chest pain, breathing difficulty, near fainting, fever, paralysis 1 side of body, vision change, speech difficulty, difficulty with balance or any acute concerns]. Prescriptions: New ondansetron 4 mg tablet,disintegrating 4 mg PO Q8H PRN (Reason: nausea and vomiting) Qty: 7 RF: 0 meclizine 25 mg tablet,chewable 25 mg PO BID-TID PRN (Reason: dizziness) Qty: 10 RF: 0 No Action atorvastatin [Lipitor] 40 MG tablet 40 mg PO QPM Qty: 0 RF: 0 aspirin 81 MG tablet,delayed release (DR/EC) 81 mg PO QPM Qty: 0 RF: 0 metformin [Glucophage XR] 500 MG tablet extended release 24 hr 1,000 mg PO BID Qty: 0 RF: 0 OMEGA-3 FATTY ACIDS (FISH OIL) 500 mg PO DAILY Qty: 0 RF: 0 metoprolol succinate [Toprol XL] 50 MG tablet extended release 24 hr 50 mg PO QPM Qty: 0 RF: 0 acetaminophen [Tylenol 8 Hour] 650 mg tablet extended release 650 mg PO Q8H PRN (Reason: pain) Qty: 30 RF: 0 ibuprofen 400 mg tablet 400 mg PO TID Qty: 20 RF: 0 losartan 50 mg Tablet 50 mg PO QPM RF: 0 Referrals: Kalpana Upton PA-C [Primary Care Provider] - <Thais Aviles DO - Last Filed: 03/31/20 07:12> Cosign ED Attending Cosignature Attestation: I was immediately available in the depar tment for consultation. Documentation has been reviewed. I agree with assessment and plan.
[2020-03-29 15:09] LABS: Add Manual Diff / Slide Review NO; Basophils Absolute Auto 100 /uL (0-100); Basophils Percent Auto 0.8 % (0-2); Eosinophils Absolute Auto 400 /uL (0-450); Eosinophils Percent Auto 4.7 % (2-4); Hematocrit 41.9 % (41-53); Hemoglobin 13.2 g/dL (13.5-17.5); Lymphocytes Absolute Auto 2300 /uL (1100-4500); Lymphocytes Percent Auto 28.7 % (25-40); Mean Corpuscular HGB Conc 31.5 % (30-36); Mean Corpuscular Hemoglobin 20.9 PG (26-34); Mean Corpuscular Volume 66.3 fL (80-100); Monocytes Absolute Auto 600 /uL (0-900); Monocytes Percent Auto 7.8 % (3-14); Neutrophils Absolute Auto 4700 /uL (1500-7000); Platelet Count 273 X10^3/uL (150-400); Prothrombin Time 11.3 SECONDS (10.1-12.7); Red Blood Cell Count 6.32 X10^6/uL (4.5-5.9); Red Cell Distribution Width 17.2 % (11.6-14.8); White Blood Cell Count 8.1 X10^3/uL (4.5-11.0)
[2020-03-29 15:12] LABS: PTT Partial Thromboplastin Tim 36 SECONDS (26.4-36.2)
[2020-03-29 15:14] LABS: Alanine Aminotransferase 41 IU/L (<50); Albumin 4.4 g/dL (3.5-5.0); Albumin Globulin Ratio 1.1 (1.0-2.8); Alkaline Phosphatase 109 U/L (38-126); Aspartate Aminotransferase 40 IU/L (17-59); BUN Creatinine Ratio 21.3 (6-22); Bilirubin Total 0.5 mg/dL (0.2-1.3); Blood Urea Nitrogen 13 mg/dL (9-20); Calcium 9.3 mg/dL (8.4-10.2); Carbon Dioxide 27 mmol/L (22-32); Chloride 107 mmol/L (98-107); Creatine Kinase 387 U/L (55-170); Estimated Glomerular Filt Rate > 60.0 mL/min (>60); Globulin 3.9 g/dL (1.7-4.1); Glucose 119 mg/dL (70-100); HEMOLYSIS 43 (0-50); Potassium 4.4 mmol/L (3.4-5.1); Sodium 140 mmol/L (137-145); Total Protein 8.3 g/dL (6.3-8.2)
[2020-03-29 15:26] LABS: Troponin I < 0.012 ng/mL (0.01-0.034)
[2020-03-29 15:30] LABS: CKMB % Relative Index 0.2 % (1.5-5.0); Creatine Kinase MB 0.64 ng/mL (<2.37)
[2020-03-29 15:33] LABS: Hypochromasia 1+; Microcytosis 2+
[2020-03-29] MEDS: ACETAMINOPHEN 325 MG TABLET 650 MG PO (16:26)
[2020-03-29] MEDS: MECLIZINE HCL 12.5 MG TABLET 25 MG PO (16:26)
[2020-03-29] MEDS: KETOROLAC 60 MG/2 ML VIAL 15 MG IV (16:26)
[2020-03-29] MEDS: ONDANSETRON 4 MG/2 ML INJ IV (16:26)
[2020-03-29] MEDS: SODIUM CHLORIDE 0.9% 500 ML 1000 ML IV (16:27)
[2020-03-29] MEDS: HYDROMORPHONE 0.5 MG INJ IV (17:36)
== END 2020-03-29 18:28 | disposition home or self-care (01) ==
PROVIDERS: Emergency Provider Nurse Practitioner Family; PCP Physician Assistant Medical
DX: R42 Dizziness and giddiness (principal); R51.9 Headache, unspecified; I10 Essential (primary) hypertension; E78.5 Hyperlipidemia, unspecified; E11.9 Type 2 diabetes mellitus without complications; R07.89 Other chest pain; Z79.82 Long term (current) use of aspirin; E66.01 Morbid (severe) obesity due to excess calories; Z68.31 Body mass index [BMI] 31.0-31.9, adult
CPT/HCPCS: 36415; 70450; 80053; 82550; 82553; 84484; 85025; 85610; 85730; 93005; 96361; 96374; 96375; 99281; 99284; J1170; J1885; J2405

== ENCOUNTER → 2021-09-25 08:17 | Outpatient (CLI) | payer OTHER, SELFPAY ==
[2019-07-14 21:25] VITALS: BMI 39.6
[2021-09-25 09:47] LABS: Cholesterol 162 mg/dL (140-199); HDL Cholesterol 37 mg/dL (40-60); LDL Cholesterol Calculated 103 mg/dL (<100); Triglycerides 109 mg/dL (35-150)
[2021-09-25 10:37] LABS: Creatinine Urine Random 263.2 mg/dL
[2021-09-25 10:41] LABS: Microalbumi Creatinin Ratio Ur 9.8 ug/mg CR (<30); Microalbumin Urine Random 2.6 mg/dL (0-1.6)
[2021-09-26 15:50] LABS: Hemoglobin A1C% w Est Avg Glu 7.7 % (4.0-6.0)
== END ==
PROVIDERS: PCP Family Medicine; Referring Provider Family Medicine; Visit Provider Family Medicine
DX: E11.9 Type 2 diabetes mellitus without complications (principal)
CPT/HCPCS: 36415; 80061; 82043; 82570; 83036

== ENCOUNTER → 2022-01-12 10:47 | Outpatient (CLI) | payer OTHER, SELFPAY ==
[2021-11-18 15:48] VITALS: BMI 39.6
[2022-01-12 12:15] LABS: Hematocrit 38.7 % (41-53); Hemoglobin 12.2 g/dL (13.5-17.5); Mean Corpuscular HGB Conc 31.6 % (30-36); Mean Corpuscular Hemoglobin 21.7 PG (26-34); Mean Corpuscular Volume 68.6 fL (80-100); Platelet Count 203 X10^3/uL (150-400); Red Blood Cell Count 5.64 X10^6/uL (4.5-5.9); Red Cell Distribution Width 16.4 % (11.6-14.8); White Blood Cell Count 8.1 X10^3/uL (4.5-11.0)
[2022-01-12 12:18] LABS: Reticulocyte Count, Percent 1.6 % (0.9-2.6)
[2022-01-12 12:26] LABS: HEMOLYSIS < 15 (0-50); Iron 90 ug/dL (49-181)
[2022-01-12 12:39] LABS: Percent Iron Saturation 25 % (20-50); Total Iron Binding Capacity 364 ug/dL (261-462); Transferrin 261 mg/dL (206-381)
[2022-01-13 08:31] LABS: Fructosamine 314 umol/L (0-285)
== END ==
PROVIDERS: PCP Family Medicine; Referring Provider Student in an Organized Health Care Education/Training Program; Visit Provider Student in an Organized Health Care Education/Training Program
DX: D50.9 Iron deficiency anemia, unspecified (principal); E11.9 Type 2 diabetes mellitus without complications; Z86.2 Personal history of diseases of the blood and blood-forming organs and certain disorders involving the immune mechanism
CPT/HCPCS: 36415; 82985; 83021; 83540; 83550; 85027; 85045

== ENCOUNTER → 2022-08-27 07:56 | Outpatient (CLI) | payer OTHER, SELFPAY ==
[2021-11-18 15:48] VITALS: BMI 39.6
[2022-08-27 09:26] LABS: Add Manual Diff / Slide Review NO; Basophils Absolute Auto 100 /uL (0-100); Eosinophils Absolute Auto 300 /uL (0-450); Eosinophils Percent Auto 4.1 % (2-4); Hematocrit 36.5 % (41-53); Hemoglobin 11.7 g/dL (13.5-17.5); Lymphocytes Absolute Auto 1900 /uL (1100-4500); Lymphocytes Percent Auto 28.2 % (25-40); Mean Corpuscular Hemoglobin 22.3 PG (26-34); Mean Corpuscular Volume 69.5 fL (80-100); Monocytes Absolute Auto 600 /uL (0-900); Monocytes Percent Auto 8.6 % (3-14); Neutrophils Absolute Auto 3900 /uL (1500-7000); Neutrophils Percent Auto 58.1 % (50-75); Platelet Count 165 X10^3/uL (150-400); Red Blood Cell Count 5.26 X10^6/uL (4.5-5.9); Red Cell Distribution Width 17.6 % (11.6-14.8); White Blood Cell Count 6.7 X10^3/uL (4.5-11.0)
[2022-08-27 09:35] LABS: Alanine Aminotransferase 60 IU/L (<50); Albumin 4.1 g/dL (3.5-5.0); Alkaline Phosphatase 168 U/L (38-126); Aspartate Aminotransferase 49 IU/L (17-59); BUN Creatinine Ratio 16.2 (6-22); Bilirubin Total 0.7 mg/dL (0.2-1.3); Blood Urea Nitrogen 11 mg/dL (9-20); Calcium 9.2 mg/dL (8.4-10.2); Carbon Dioxide 27 mmol/L (22-32); Chloride 102 mmol/L (98-107); Cholesterol 223 mg/dL (140-199); Estimated Glomerular Filt Rate > 60 mL/min (>60); Globulin 4.2 g/dL (1.7-4.1); Glucose 181 mg/dL (70-100); HDL Cholesterol 32 mg/dL (40-60); HEMOLYSIS < 15 (0-50); LDL Cholesterol Calculated 143 mg/dL (<100); Potassium 4.6 mmol/L (3.4-5.1); Sodium 137 mmol/L (137-145); Total Protein 8.3 g/dL (6.3-8.2); Triglycerides 238 mg/dL (35-150)
[2022-08-27 09:53] LABS: Anisocytosis 3+; Target Cells 1+
[2022-08-27 09:59] LABS: Prostate Specific Antigen Scrn 0.643 ng/mL (0.1-4.0)
== END ==
PROVIDERS: PCP Family Medicine; Referring Provider Family Medicine; Visit Provider Family Medicine
DX: D50.9 Iron deficiency anemia, unspecified (principal); E11.69 Type 2 diabetes mellitus with other specified complication; E78.5 Hyperlipidemia, unspecified; I10 Essential (primary) hypertension; Z12.5 Encounter for screening for malignant neoplasm of prostate
CPT/HCPCS: 36415; 80053; 80061; 83036; 85025; G0103

== ENCOUNTER → 2022-11-26 07:52 | Outpatient (CLI) | payer OTHER, SELFPAY ==
[2021-11-18 15:48] VITALS: BMI 39.6
[2022-11-26 09:21] LABS: Hemoglobin A1C% w Est Avg Glu 8.9 % (4.0-6.0)
[2022-11-26 09:32] LABS: Hematocrit 37.2 % (41-53); Hemoglobin 11.8 g/dL (13.5-17.5); Mean Corpuscular HGB Conc 31.8 % (30-36); Mean Corpuscular Hemoglobin 22.2 PG (26-34); Mean Corpuscular Volume 69.7 fL (80-100); Platelet Count 157 X10^3/uL (150-400); Red Blood Cell Count 5.34 X10^6/uL (4.5-5.9); White Blood Cell Count 7.7 X10^3/uL (4.5-11.0)
[2022-11-26 10:34] LABS: Creatinine Urine Random 170.2 mg/dL
[2022-11-26 10:37] LABS: Microalbumi Creatinin Ratio Ur 5.2 ug/mg CR (<30); Microalbumin Urine Random 0.9 mg/dL (0-1.6)
[2022-11-27 08:36] LABS: Fructosamine 294 umol/L (0-285)
== END ==
PROVIDERS: PCP Family Medicine; Referring Provider Family Medicine; Visit Provider Family Medicine
DX: E11.69 Type 2 diabetes mellitus with other specified complication (principal); E11.9 Type 2 diabetes mellitus without complications; E66.01 Morbid (severe) obesity due to excess calories; E78.5 Hyperlipidemia, unspecified; I10 Essential (primary) hypertension; Z68.42 Body mass index [BMI] 45.0-49.9, adult; D50.8 Other iron deficiency anemias
CPT/HCPCS: 36415; 82043; 82570; 82985; 83036; 85027

== ENCOUNTER → 2023-12-25 07:20 | Outpatient (CLI) | payer BC, SELFPAY ==
[2021-11-18 15:48] VITALS: BMI 39.6
[2023-12-25 08:20] LABS: Add Manual Diff / Slide Review NO; Basophils Absolute Auto 100 /uL (0-100); Basophils Percent Auto 0.8 % (0-2); Eosinophils Absolute Auto 500 /uL (0-450); Eosinophils Percent Auto 6.5 % (2-4); Hematocrit 38.1 % (41-53); Hemoglobin 12.2 g/dL (13.5-17.5); Lymphocytes Absolute Auto 1800 /uL (1100-4500); Mean Corpuscular Hemoglobin 22.2 PG (26-34); Mean Corpuscular Volume 69.4 fL (80-100); Monocytes Absolute Auto 700 /uL (0-900); Monocytes Percent Auto 8.6 % (3-14); Neutrophils Absolute Auto 4800 /uL (1500-7000); Neutrophils Percent Auto 61.1 % (50-75); Platelet Count 159 X10^3/uL (150-400); Red Blood Cell Count 5.49 X10^6/uL (4.5-5.9); Red Cell Distribution Width 16.8 % (11.6-14.8); White Blood Cell Count 7.9 X10^3/uL (4.5-11.0)
[2023-12-25 08:38] LABS: Anisocytosis 1+; Poikilocytosis 1+
[2023-12-25 09:04] LABS: Creatinine Urine Random 205.52 mg/dL
[2023-12-25 09:08] LABS: Microalbumin Urine Random 4.8 mg/dL (0-1.6)
[2023-12-25 09:09] LABS: Cholesterol 147 mg/dL (140-199); HDL Cholesterol 45 mg/dL (40-60); LDL Cholesterol Calculated 80 mg/dL (<100); Triglycerides 108 mg/dL (35-150)
[2023-12-25 09:14] LABS: High Sensitivity CRP - Cardiac 2.1 mg/L (1.0-3.0)
[2023-12-25 10:25] LABS: Hemoglobin A1C% w Est Avg Glu 9.3 % (4.0-6.0)
[2023-12-25 11:16] LABS: Prostate Specific Antigen Scrn 1.19 ng/mL (0.1-4.0)
== END ==
PROVIDERS: PCP Family Medicine; Referring Provider Family Medicine; Visit Provider Family Medicine
DX: E11.69 Type 2 diabetes mellitus with other specified complication (principal); E78.5 Hyperlipidemia, unspecified; D50.9 Iron deficiency anemia, unspecified; Z12.5 Encounter for screening for malignant neoplasm of prostate; I10 Essential (primary) hypertension
CPT/HCPCS: 36415; 80061; 82043; 82570; 83036; 85025; 86140; G0103

== ENCOUNTER → 2024-02-12 06:48 | Outpatient (CLI) | payer BC, SELFPAY ==
[2021-11-18 15:48] VITALS: BMI 39.6
[2024-02-12 08:15] LABS: Alanine Aminotransferase 54 IU/L (<50); Albumin 4.2 g/dL (3.5-5.0); Alkaline Phosphatase 208 U/L (38-126); Aspartate Aminotransferase 39 IU/L (17-59); BUN Creatinine Ratio 17.5 (6-22); Bilirubin Total 0.8 mg/dL (0.2-1.3); Blood Urea Nitrogen 11 mg/dL (9-20); Calcium 9.8 mg/dL (8.4-10.2); Carbon Dioxide 22 mmol/L (22-32); Chloride 105 mmol/L (98-107); Estimated Glomerular Filt Rate > 60 mL/min (>60); Globulin 4.2 g/dL (1.7-4.1); Glucose 188 mg/dL (70-100); HEMOLYSIS < 15 (0-50); Potassium 4.5 mmol/L (3.4-5.1); Sodium 139 mmol/L (137-145); Total Protein 8.4 g/dL (6.3-8.2)
== END ==
PROVIDERS: PCP Family Medicine; Referring Provider Family Medicine; Visit Provider Family Medicine
DX: I10 Essential (primary) hypertension (principal); E11.9 Type 2 diabetes mellitus without complications; Z79.899 Other long term (current) drug therapy; E78.5 Hyperlipidemia, unspecified; G47.33 Obstructive sleep apnea (adult) (pediatric); E66.813 Obesity, class 3; Z68.41 Body mass index [BMI] 40.0-44.9, adult
CPT/HCPCS: 36415; 80053

== ENCOUNTER 2024-03-01 07:24 | Day surgery (SDC) | payer BC, SELFPAY ==
[2021-11-18 15:48] VITALS: BMI 39.6
--- NOTE | 2024-03-01 | PATH_ITS ---
[facility] Accession Number: [id number] No. of containers..02 Tissue . 01 Material submitted: . PART A: colon - SIGMOID POLYP PART B: rectosigmoid junction - RECTOSIGMOID POLYP . 01 Diagnosis: Part A: SIGMOID POLYP: Hyperplastic polyp. . Part B: RECTOSIGMOID POLYP: Colonic mucosa with no diagnostic alterations and adjacent fragment of vegetable matter consistent with seed. No neoplasm identified. [facility] 03/06/20241413 Local . 01 Electronically signed: . Farhat Galvan MD, Pathologist NPI- [id number] . 01 Gross description: . A. Received in formalin with two patient identifiers and sigmoid polyp, is a single chan soft tissue fragment 0.9 cm in greatest dimension, and an orange fragment of debris. Submitted in cassette A1. . B. Received in formalin with two patient identifiers and rectosigmoid polyp, is a single chan soft tissue fragment 0.7 cm in greatest dimension, and a brown fragment of debris. Submitted in cassette B1. ([id number]) /[facility] 03/06/20241413 Local . 01 Pathologist provided ICD-10: K63.5 . 01 CPT . 854875, 373576 Specimen Comment: A courtesy copy of this report has been sent to [facility] Pathology Performed at: [address] [address], [place], [place] [id number] MD Farhat Galvan MD Phone: [phone]
[2024-03-01 08:20] VITALS: BP 117/73; PULSE 69; RESP 17; TEMP 36.1; O2SAT 95
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
--- NOTE | 2024-03-01 09:04 | PM.OP.COLON ---
Operative Date/Time/Diagnoses Date of procedure: 03/01/24 Time of procedure: 09:05 Pre-op diagnosis: Personal history of polyps Post-op diagnosis: same (Polyp of the sigmoid colon, polyp of the rectosigmoid junction) Procedure & Clinicians Study performed: Endoscopy with cold snare polypectomy Same procedure as scheduled: Yes Indications: Personal history of polyps Surgeon: Kyle Lozano Procedure Notes SCOAP/Timeout: Performed Procedure in detail: Time-out was performed. Mac was induced. Patient was placed in left lateral decubitus position. The perineum was inspected without any gross abnormality. Lubricated pediatric colonoscope was inserted and advanced to the cecum. The terminal ileum was intubated. The colonoscope was withdrawn slowly inspecting the circumference of the colon. Left-sided diverticulosis was noted. Cold snare polypectomy was used to remove a polyp of the sigmoid colon and a polyp of the rectosigmoid junction. These were removed completely and retrieved. Very small polyps may have been missed, prep quality was adequate. Retroflexed view of the rectum showed small, non prolapsed nonbleeding internal hemorrhoids. The scope was withdrawn the patient was taken to PACU in good condition. Scope withdrawal time: 11 Sedation minutes: 16 Findings: divertiulosis (Left-sided) and polyp(s) Specimen(s): other (1. Sigmoid polyp 2. Rectosigmoid polyp) Complications: none Impression: Two polyps, personal history of polyps. Repeat colonoscopy in 5 years Post-procedure Recommendations: Colonoscopy in 5 years Follow up: as needed Disposition: PACU
[2024-03-01 09:08] VITALS: BP 124/80; PULSE 73; RESP 17; TEMP 36.6; O2SAT 97
[2024-03-01 09:13] VITALS: BP 123/80; PULSE 76; RESP 14; O2SAT 97
[2024-03-01 09:19] VITALS: BP 110/73; PULSE 73; RESP 19; O2SAT 95
[2024-03-01 09:20] VITALS: BP 110/73; PULSE 69; RESP 18; TEMP 36.2; O2SAT 96
== END 2024-03-01 09:32 | disposition home or self-care (01) ==
PROVIDERS: Surgery; PCP Family Medicine; Referring Provider Surgery; Visit Provider Surgery
PROC: 0DJD8ZZ Inspection of Lower Intestinal Tract, Via Natural or Artificial Opening Endoscopic (ICD-10-PCS; CPT 45378; principal; 2024-03-01 09:15)
DX: Z12.11 Encounter for screening for malignant neoplasm of colon (principal); Z86.0100 Personal history of colon polyps, unspecified; K57.30 Diverticulosis of large intestine without perforation or abscess without bleeding; K63.5 Polyp of colon
CPT/HCPCS: 45385; J2704

== ENCOUNTER → 2024-05-20 07:25 | Outpatient (CLI) | payer BC, SELFPAY ==
[2021-11-18 15:48] VITALS: BMI 39.6
[2024-05-20 08:32] LABS: Hemoglobin A1C% w Est Avg Glu 7.1 % (4.0-6.0)
[2024-05-20 08:37] LABS: Alanine Aminotransferase 45 IU/L (<50); Albumin 4.6 g/dL (3.5-5.0); Albumin Globulin Ratio 1.1 (1.0-2.8); Alkaline Phosphatase 149 U/L (38-126); Aspartate Aminotransferase 40 IU/L (17-59); BUN Creatinine Ratio 18.3 (6-22); Bilirubin Total 0.8 mg/dL (0.2-1.3); Blood Urea Nitrogen 13 mg/dL (9-20); Calcium 9.7 mg/dL (8.4-10.2); Carbon Dioxide 23 mmol/L (22-32); Chloride 106 mmol/L (98-107); Estimated Glomerular Filt Rate > 60 mL/min (>60); Globulin 4.3 g/dL (1.7-4.1); Glucose 134 mg/dL (70-100); HEMOLYSIS < 15 (0-50); Potassium 4.6 mmol/L (3.4-5.1); Sodium 139 mmol/L (137-145); Total Protein 8.9 g/dL (6.3-8.2)
== END ==
PROVIDERS: PCP Family Medicine; Referring Provider Family Medicine; Visit Provider Family Medicine
DX: E66.01 Morbid (severe) obesity due to excess calories (principal); E11.9 Type 2 diabetes mellitus without complications; E88.810 Metabolic syndrome
CPT/HCPCS: 36415; 80053; 83036

== ENCOUNTER → 2024-12-23 09:20 | Outpatient (CLI) | payer BC, SELFPAY ==
[2024-09-16 14:20] VITALS: BMI 39.6
[2024-12-23 10:39] LABS: Hematocrit 41.3 % (41-53); Hemoglobin 13.0 g/dL (13.5-17.5); Mean Corpuscular HGB Conc 31.5 % (30-36); Mean Corpuscular Hemoglobin 21.1 PG (26-34); Mean Corpuscular Volume 67.1 fL (80-100); Platelet Count 203 X10^3/uL (150-400)
[2024-12-23 10:46] LABS: Hemoglobin A1C% w Est Avg Glu 7.0 % (4.0-6.0)
[2024-12-23 10:55] LABS: Alanine Aminotransferase 39 IU/L (<50); Albumin 4.4 g/dL (3.5-5.0); Albumin Globulin Ratio 1.0 (1.0-2.8); Alkaline Phosphatase 128 U/L (38-126); Blood Urea Nitrogen 13 mg/dL (9-20); Calcium 10.1 mg/dL (8.4-10.2); Carbon Dioxide 25 mmol/L (22-32); Chloride 103 mmol/L (98-107); Cholesterol 122 mg/dL (140-199); Estimated Glomerular Filt Rate > 60 mL/min (>60); Globulin 4.4 g/dL (1.7-4.1); Glucose 83 mg/dL (70-99); HDL Cholesterol 42 mg/dL (40-60); HEMOLYSIS 17 (0-50); Potassium 4.7 mmol/L (3.4-5.1); Sodium 139 mmol/L (137-145); Total Protein 8.8 g/dL (6.3-8.2); Triglycerides 91 mg/dL (35-150)
== END ==
PROVIDERS: PCP Family Medicine; Referring Provider Family Medicine; Visit Provider Family Medicine
DX: I20.89 Other forms of angina pectoris (principal); E66.01 Morbid (severe) obesity due to excess calories; B35.1 Tinea unguium; I10 Essential (primary) hypertension; E11.69 Type 2 diabetes mellitus with other specified complication; E78.5 Hyperlipidemia, unspecified; E11.9 Type 2 diabetes mellitus without complications; D50.8 Other iron deficiency anemias; G47.33 Obstructive sleep apnea (adult) (pediatric); E88.810 Metabolic syndrome; E66.9 Obesity, unspecified
CPT/HCPCS: 36415; 80053; 80061; 83036; 85027

== ENCOUNTER → 2025-01-20 13:51 | Outpatient (CLI) | payer BC, SELFPAY ==
[2024-09-16 14:20] VITALS: BMI 39.6
--- NOTE | 2025-01-28 10:16 | DI.NM.S_ITS ---
DATE OF SERVICE: 01/20/2025 NUCLEAR CARDIOLOGY MYOCARDIAL PERFUSION STUDY PROCEDURE: Exercise treadmill stress and rest myocardial perfusion imaging with gating to assess ejection fraction and regional wall motion. ORDERING PROVIDER: Naz Finney D.O. INDICATIONS: The patient is a 54-year-old obese diabetic male with a strong family history of coronary disease and exertional chest discomfort. CARDIAC STRESS: The patient was able to exercise for 8 minutes 37 seconds on a standard Jose A protocol suggesting mildly impaired exercise capacity with MADDI of +7%, achieving 10.1 METS. He had a normal heart rate and blood pressure response to exercise, achieving a maximum heart rate of 146 bpm (89% of his predicted maximum). He reported pinpoint focal chest discomfort at rest prior to exercise that increased slightly with stress and then return to its baseline level promptly in recovery. His resting ECG is normal with normal ST segments. With stress, there are no obvious ST-segment shifts. He had occasional isolated PVCs but no complex ectopy except for brief bigeminy in recovery. At 7 minutes 40 seconds of exercise at a heart rate of 136 bpm, 25.2 millicuries of technetium-99m Myoview was injected and he was imaged 15 minutes later using a gated SPECT acquisition protocol. He returned 7 days later and was injected with 26.2 millicuries oftechnetium-99m Myoview at rest and imaged 15 minutes later, again using a gated SPECT acquisition protocol. FINDINGS: 1. Raw data. There is fair myocardial tracer uptake but with obvious chest wall and diaphragmatic attenuation noted. The lung/heart ratio is normal at 0.30 with a normal TID ratio of 0.65. 2. Quantitated gated SPECT: Post-stress ejection fraction is 71% without any focal wall motion abnormality and specifically the inferior and anterior doe have normal contractility. The resting ejection fraction is 70% with an increased end-diastolic volume of 164 mL. The right ventricular free wall has increased tracer activity which can be a sign of a right ventricular overload condition but clinical correlation is needed. 3. Myocardial perfusion imaging: The post-stress supine images are of marginal quality and show a mild mid anterior perfusion defect that does not extend to the apex and completely resolves on the prone images, consistent with chest wall attenuation artifact. In addition, there is a moderate perfusion defect in the proximal and mid inferior wall that also completely resolves on the prone images, consistent with diaphragmatic attenuation artifact. The resting images show a similar perfusion pattern although slight improvement in both defects but likely reflecting differing positioning affecting attenuation artifact. IMPRESSION: 1. Probable normal myocardial perfusion study. 2. Subtle, partially reversible, but predominantly fixed mid anterior and proximal and mid inferior perfusion defects, both completely resolving on the prone images which show a normal, homogeneous perfusion pattern, and thus most consistent with chest wall and diaphragmatic attenuation artifact, respectively. 3. Moderately increased left ventricular volumes with normal left ventricular systolic function without any focal wall motion abnormality. There is increased right ventricular free wall tracer uptake which can be a sign of a right ventricular overload condition, but requires clinical correlation. 4. Atypical chest discomfort at rest, slightly worse with stress, but atypical for angina. He had mildly impaired exercise capacity with occasional PVCs, briefly in a bigeminal pattern, but no other complex ventricular ectopy and no ECG evidence of ischemia. 5. Compared to the previous myocardial perfusion study of 07/15/2019, that study also showed an anterior and inferior perfusion defect in a very similar pattern that also resolved on the prone images although the anterior defect was more subtle previously. The previous ejection fraction was 76% and the end-diastolic volume was mildly increased at 136 mL, suggesting possible slight interval increase in left ventricular volumes but no other significant change. Jasson Brown - PO/woody/RIMA doc#: [id number]/job#: [id number] dd: 01/27/2025 17:14:00 dt: 01/27/2025 22:14:00 DICTATING MD/COPIES TO: Lalito Santillan MD; Naz Finney M.D. COPIES MNE: JOLIE;
== END ==
LOC: NUCM 13:53
PROVIDERS: PCP Family Medicine; Referring Provider Family Medicine; Visit Provider Family Medicine
DX: E11.69 Type 2 diabetes mellitus with other specified complication (principal); E78.5 Hyperlipidemia, unspecified; I20.89 Other forms of angina pectoris
CPT/HCPCS: 78452; 93017; A9502